=== PATIENT | female | born 1970 | race African-American/Black ===

== ENCOUNTER 2019-02-27 08:49 | Emergency (ER) | payer BC ==
[2019-02-27] MEDS ORDERED: NA CHLORIDE 0.9% 1,000 ML ONE (09:55)
[2019-02-27] MEDS ORDERED: KETOROLAC 30 MG/ML INJ ONE (09:55)
[2019-02-27] MEDS ORDERED: DIPHENHYDRAMINE 50 MG/ML VIAL ONE (09:55)
[2019-02-27] MEDS ORDERED: METOCLOPRAMIDE 10 MG/2mL INJ ONE (09:55)
--- NOTE | 2019-02-27 10:02 | RAD REPORT ---
EXAM DESCRIPTION: CT - Head Brain Wo Cont - 02/27/2019 9:48 am CLINICAL HISTORY: Persistent headache COMPARISON: None. TECHNIQUE: Axial 5 mm thick images of the head were obtained without IV contrast. All CT scans are performed using dose optimization technique as appropriate and may include automated exposure control or mA/KV adjustment according to patient size. FINDINGS: No intracranial hemorrhage, mass, edema or shift of mid-line structures. No acute infarcti on changes seen. No abnormal extra-axial fluid collections. Ventricles are normal. Mastoid air cells and visualized portions of the paranasal sinuses are clear. No acute bony findings. IMPRESSION: Negative non-contrast CT head examination.
[2019-02-27 10:39] LABS: Basophils % 0.6 % (0-1.3); Hematocrit 38.6 % (36.0-45.0); Lymphocytes % 17.6 % (15.3-44.8); MPV 10.5 fL (7.6-11.3); RBC Red Blood Cell Count 4.79 M/uL (3.86-4.86)
[2019-02-27 10:45] LABS: Albumin 3.3 g/dL (3.4-5.0); Bilirubin Total 0.4 mg/dL (0.2-1.0); Potassium 3.2 mmol/L (3.5-5.1); Protein, Total 8.6 g/dL (6.4-8.2)
--- NOTE | 2019-02-27 11:40 | ER ---
Nurse's Notes [facility] Name: Manish Tena Age: 48 yrs Sex: Female : 1970 Arrival Date: 02/27/2019 Time: 08:51 Bed 5 Private MD: Diagnosis: Headache;Essential (primary) hypertension;Hypokalemia Presentation: 02/27 08:51 Presenting complaint: EMS states: called out for frontal headache that started em yesterday, reports nausea, denies vomiting, feels similar to migraines. Transition of care: patient was not received from another setting of care. Onset of symptoms was February 26, 2018. Risk Assessment: Do you want to hurt yourself or someone else? Patient reports no desire to harm self or others. Initial Sepsis Screen: Does the patient meet any 2 criteria? No. Patient's initial sepsis screen is negative. Does the patient have a suspected source of infection? No. Patient's initial sepsis screen is negative. Care prior to arrival: None. 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 - Social history:: Smoking status: Patient/guardian denies using tobacco. - Ebola Screening: : Patient negative for fever greater than or equal to 101.5 degrees Fahrenheit, and additional compatible Ebola Virus Disease symptoms Patient denies exposure to infectious person Patient denies travel to an Ebola-affected area in the 21 days before illness onset No symptoms or risks identified at this time. - Family history:: not pertinent. Screenin:55 Abuse screen: Denies threats or abuse. Nutritional screening: No deficits noted. em Tuberculosis screening: No symptoms or risk factors identified. Fall Risk None identified. Assessment: 08:55 General: Appears in no apparent distress. uncomfortable, well groomed, well developed, em well nourished, Behavior is calm, cooperative, appropriate for age, Denies fever. Pain: Complains of pain in right frontal area and left frontal area and forehead Pain currently is 9 out of 10 on a pain scale. Pain began 1 day ago. Neuro: Level of Consciousness is awake, alert, obeys commands, Oriented to person, place, time, situation, Appropriate for age Moves all extremities. Gait is steady, Speech is normal, Reports dizziness, headache photophobia. Cardiovascular: Capillary refill < 3 seconds Patient's skin is warm and dry. Respiratory: Airway is patent Respiratory effort is even, unlabored, Respiratory pattern is regular, symmetrical. GI: Abd is soft and non tender X 4 quads. Reports nausea, Patient currently denies vomiting. Derm: Skin is intact, is healthy with good turgor, Skin is pink, warm \T\ dry. Musculoskeletal: Capillary refill < 3 seconds, Range of motion: intact in all extremities. 10:24 Reassessment: Patient appears in no apparent distress at this time. Patient and/or em family updated on plan of care and expected duration. Pain level reassessed. Patient is alert, oriented x 3, equal unlabored respirations, skin warm/dry/pink. 11:00 Reassessment: Patient appears in no apparent distress at this time. Patient and/or em family updated on plan of care and expected duration. Pain level reassessed. Patient is alert, oriented x 3, equal unlabored respirations, skin warm/dry/pink. Patient states feeling better. Patient states symptoms have improved. 12:08 Reassessment: Patient appears in no apparent distress at this time. Patient and/or em family updated on plan of care and expected duration. Pain level reassessed. Patient is alert, oriented x 3, equal unlabored respirations, skin warm/dry/pink. Patient states feeling better. Patient states symptoms have improved. Vital Signs: 08:55 BP 144 / 96; Pulse 87; Resp 16 S; Temp 98.6(O); Pulse Ox 100% on R/A; Weight 79.38 kg; em Height 5 ft. 7 in. (170.18 cm); Pain 9/10; 10:05 BP 127 / 79; Pulse 89; Resp 18; Pulse Ox 100% on R/A; Pain 9/10; em 11:00 BP 141 / 88; Pulse 78; Resp 18; Pulse Ox 99% on R/A; Pain 1/10; em 08:55 Body Mass Index 27.41 (79.38 kg, 170.18 cm) em ED Course: 08:51 Patient arrived in ED. aa5 08:51 Lorenzo Swartz, RN is Primary Nurse. em 08:53 Triage completed. em 08:54 Parrish Francis MD is Attending Physician. scott 08:55 Arm band placed on. em 08:55 Patient has correct armband on for positive identification. Placed in gown. Bed in low em position. Call light in reach. Side rails up X2. Adult w/ patient. Pulse ox on. NIBP on. 09:49 CT Head Brain wo Cont In Process Unspecified. EDMS 10:10 Inserted saline lock: 22 gauge in right antecubital area, using aseptic technique. em Blood collected. 10:10 Initial lab(s) drawn, by me, sent to lab. em 10:30 EKG done, by manager technical. reviewed by Parrish Francis MD. at1 11:41 Esequiel Crowe MD is Referral Physician. scott 11:58 No provider procedures requiring assistance completed. IV discontinued, intact, em bleeding controlled, No redness/swelling at site. Pressure dressing applied. Administered Medications: 10:10 Drug: NS 0.9% 1000 ml Route: IV; Rate: 1 bolus; Site: right antecubital; em 11:47 Follow up: IV Status: Completed infusion; IV Intake: 1000ml em 10:12 Drug: TORadol 30 mg Route: IVP; Site: right antecubital; em 10:40 Follow up: Response: No adverse reaction; Marked relief of symptoms; Pain is decreased em 10:13 Drug: Benadryl 25 mg Route: IVP; Site: right antecubital; em 10:40 Follow up: Response: No adverse reaction; Marked relief of symptoms em 10:15 Drug: Reglan 10 mg Route: IVP; Site: right antecubital; em 10:40 Follow up: Response: No adverse reaction; Marked relief of symptoms em 11:57 Drug: Potassium Effervescent Tablet 25 mEq Route: PO; em 12:06 Follow up: Response: No adverse reaction em Intake: 11:47 IV: 1000ml; Total: 1000ml. em Outcome: 11:40 Discharge ordered by . scott 11:58 Discharged to home ambulatory, with family. em 11:58 Condition: good 11:58 Discharge instructions given to patient, Instructed on discharge instructions, follow up and referral plans. medication usage, Demonstrated understanding of instructions, follow-up care, medications, Prescriptions given X 2. 12:09 Patient left the ED. em Signatures: Dispatcher [employer] Parrish Dillard MD MD cha Munoz, Edgar, RN RN Kristel Virk RN RN aa5 Lyssa Trevino, doll wig hackler EKG Tat1
--- NOTE | 2019-02-27 11:40 | EDPHYS ---
Physician Documentation [facility] Name: Manish Tena Age: 48 yrs Sex: Female : 1970 Arrival Date: 02/27/2019 Time: 08:51 Bed 5 Private MD: ED Physician Parrish Francis HPI: 02/27 09:34 This 48 yrs old Black Female presents to ER via EMS with complaints of Headache. scott 09:34 The patient complains of pain to the forehead, left frontal area and right frontal scott area. The patient describes the headache as constant. Onset: The symptoms/episode began/occurred 5 day(s) ago. Associated signs and symptoms: The patient has no apparent associated signs or symptoms. Severity of symptoms: At its worst the pain was moderate, in the emergency department the pain is unchanged. Headache History: The patient has had previous headaches and this one is similar to previous episodes. The symptoms are alleviated by Darkened room, quiet, remaining still, sleep, the symptoms are aggravated by lights, movement, noise, stress. The patient has experienced similar episodes in the past, multiple times. 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 - Social history:: Smoking status: Patient/guardian denies using tobacco. - Ebola Screening: : Patient negative for fever greater than or equal to 101.5 degrees Fahrenheit, and additional compatible Ebola Virus Disease symptoms Patient denies exposure to infectious person Patient denies travel to an Ebola-affected area in the 21 days before illness onset No symptoms or risks identified at this time. - Family history:: not pertinent. ROS: 09:34 Constitutional: Negative for fever, chills, and weight loss, Eyes: Negative for injury, scott pain, redness, and discharge, ENT: Negative for injury, pain, and discharge, Neck: Negative for injury, pain, and swelling, Cardiovascular: Negative for chest pain, palpitations, and edema, Respiratory: Negative for shortness of breath, cough, wheezing, and pleuritic chest pain, Abdomen/GI: Negative for abdominal pain, nausea, vomiting, diarrhea, and constipation, Back: Negative for injury and pain, : Negative for injury, bleeding, discharge, and swelling, MS/Extremity: Negative for injury and deformity, Skin: Negative for injury, rash, and discoloration, Psych: Negative for depression, anxiety, suicide ideation, homicidal ideation, and hallucinations, Allergy/Immunology: Negative for hives, rash, and allergies, Endocrine: Negative for neck swelling, polydipsia, polyuria, polyphagia, and marked weight changes, Hematologic/Lymphatic: Negative for swollen nodes, abnormal bleeding, and unusual bruising. 09:34 Neuro: Positive for headache. Exam: 09:34 Constitutional: This is a well developed, well nourished patient who is awake, alert, scott and in no acute distress. Head/Face: Normocephalic, atraumatic. Eyes: Pupils equal round and reactive to light, extra-ocular motions intact. Lids and lashes normal. Conjunctiva and sclera are non-icteric and not injected. Cornea within normal limits. Periorbital areas with no swelling, redness, or edema. ENT: Nares patent. No nasal discharge, no septal abnormalities noted. Tympanic membranes are normal and external auditory canals are clear. Oropharynx with no redness, swelling, or masses, exudates, or evidence of obstruction, uvula midline. Mucous membranes moist. Neck: Trachea midline, no thyromegaly or masses palpated, and no cervical lymphadenopathy. Supple, full range of motion without nuchal rigidity, or vertebral point tenderness. No Meningismus. Chest/axilla: Normal chest wall appearance and motion. Nontender with no deformity. No lesions are appreciated. Cardiovascular: Regular rate and rhythm with a normal S1 and S2. No gallops, murmurs, or rubs. Normal PMI, no JVD. No pulse deficits. Respiratory: Lungs have equal breath sounds bilaterally, clear to auscultation and percussion. No rales, rhonchi or wheezes noted. No increased work of breathing, no retractions or nasal flaring. Abdomen/GI: Soft, non-tender, with normal bowel sounds. No distension or tympany. No guarding or rebound. No evidence of tenderness throughout. Back: No spinal tenderness. No costovertebral tenderness. Full range of motion. Female : Normal external genitalia. Skin: Warm, dry with normal turgor. Normal color with no rashes, no lesions, and no evidence of cellulitis. MS/ Extremity: Pulses equal, no cyanosis. Neurovascular intact. Full, normal range of motion. Psych: Awake, alert, with orientation to person, place and time. Behavior, mood, and affect are within normal limits. 09:34 Neuro: Orientation: is normal, appropriate for stated age, no acute changes, Mentation: is normal, appropriate for stated age, no acute changes, Memory: is normal, appropriate for stated age, no acute changes, Cranial nerves: grossly normal, is grossly normal based on the patient's age, Cerebellar function: is grossly normal, is grossly normal based on the patient's age, no acute changes, Motor: is normal, Sensation: is normal, Gait: not applicable Babinski testing is normal, seizure activity, is not displayed by the patient. Vital Signs: 08:55 BP 144 / 96; Pulse 87; Resp 16 S; Temp 98.6(O); Pulse Ox 100% on R/A; Weight 79.38 kg; em Height 5 ft. 7 in. (170.18 cm); Pain 9/10; 10:05 BP 127 / 79; Pulse 89; Resp 18; Pulse Ox 100% on R/A; Pain 9/10; em 11:00 BP 141 / 88; Pulse 78; Resp 18; Pulse Ox 99% on R/A; Pain 1/10; em 08:55 Body Mass Index 27.41 (79.38 kg, 170.18 cm) em MDM: 08:55 Patient medically screened. [facility] 09:36 Data reviewed: vital signs, nurses notes, lab test result(s), EKG, radiologic studies, [facility] CT scan. 02/27 09:33 Order name: CBC with Diff; Complete Time: 11:21 [facility] 02/27 09:33 Order name: Comprehensive Metabolic Panel; Complete Time: 11:21 [facility] 02/27 09:37 Order name: CT Head Brain wo Cont; Complete Time: 11: [facility] 02/27 12:01 Order name: Urine Dipstick--Ancillary (enter results) bd 02/27 09:33 Order name: Urine Dipstick-Ancillary (obtain specimen); Complete Time: 11:47 [facility] 01/14 09:37 Order name: EKG; Complete Time: 09:37 [facility] 02/27 09:37 Order name: EKG - Nurse/Tech; Complete Time: 10:17 scott Administered Medications: 10:10 Drug: NS 0.9% 1000 ml Route: IV; Rate: 1 bolus; Site: right antecubital; em 11:47 Follow up: IV Status: Completed infusion; IV Intake: 1000ml em 10:12 Drug: TORadol 30 mg Route: IVP; Site: right antecubital; em 10:40 Follow up: Response: No adverse reaction; Marked relief of symptoms; Pain is decreased em 10:13 Drug: Benadryl 25 mg Route: IVP; Site: right antecubital; em 10:40 Follow up: Response: No adverse reaction; Marked relief of symptoms em 10:15 Drug: Reglan 10 mg Route: IVP; Site: right antecubital; em 10:40 Follow up: Response: No adverse reaction; Marked relief of symptoms em 11:57 Drug: Potassium Effervescent Tablet 25 mEq Route: PO; em 12:06 Follow up: Response: No adverse reaction em Disposition: 02/27/19 11:40 Discharged to Home. Impression: Headache, Essential (primary) hypertension, Hypokalemia. - Condition is Stable. - Discharge Instructions: Potassium Content of Foods, General Headache Without Cause, Migraine Headache, Hypertension, Hypertension, Ldwu-lm-Kjww, Migraine Headache, Ynip-qu-Tknx, How to Take Your Blood Pressure, Vgdg-pj-Nxuu, General Headache Without Cause, Ofws-hu-Qepo, Managing Your Hypertension. - Prescriptions for Fioricet with Codeine 50- 325-40-30 mg Oral capsule - take 1 capsule by ORAL route every 4 hours as needed not to exceed 6 capsules per 24hrs; 20 capsule. Zofran 4 mg Oral Tablet - take 1 tablet by ORAL route every 12 hours As needed; 20 tablet. - Medication Reconciliation Form, Thank You Letter, Antibiotic Education, Prescription Opioid Use, Work release form form. - Follow up: Private Physician; When: 2 - 3 days; Reason: Recheck today's complaints, Continuance of care, Re-evaluation by your physician. Follow up: Esequiel Crowe MD; When: 2 - 3 days; Reason: Recheck today's complaints, Re-evaluation by your physician. - Problem is new. - Symptoms have improved. Signatures: Dispatcher [employer] Parrish Dillard MD MD cha Therrien, Shelly, COLLAR STITCHER-C COLLAR STITCHER-Csnw Lorenzo Swartz, RN RN em Corrections: (The following items were deleted from the chart) 11:41 11:40 02/27/2019 11:40 Discharged to Home. Impression: Headache; Essential (primary) scott hypertension. Condition is Stable. Forms are Medication Reconciliation Form, Thank You Letter, Antibiotic Education, Prescription Opioid Use. Follow up: Private Physician; When: 2 - 3 days; Reason: Recheck today's complaints, Continuance of care, Re-evaluation by your physician. Problem is new. Symptoms have improved. scott 11:43 11:41 02/27/2019 11:40 Discharged to Home. Impression: Headache; Essential (primary) scott hypertension. Condition is Stable. Discharge Instructions: General Headache Without Cause, Migraine Headache, Hypertension, Hypertension, Nwuc-wf-Bzwc, Migraine Headache, Rlmj-uq-Fuqk, How to Take Your Blood Pressure, Crxx-qd-Dsee, General Headache Without Cause, Iixw-df-Lcma, Managing Your Hypertension. Prescriptions for Fioricet with Codeine 74-289-53-30 mg Oral capsule - take 1 capsule by ORAL route every 4 hours as needed not to exceed 6 capsules per 24hrs; 20 capsule, Zofran 4 mg Oral Tablet - take 1 tablet by ORAL route every 12 hours As needed; 20 tablet. and Forms are Medication Reconciliation Form, Thank You Letter, Antibiotic Education, Prescription Opioid Use. Follow up: Private Physician; When: 2 - 3 days; Reason: Recheck today's complaints, Continuance of care, Re-evaluation by your physician. Follow up: Esequiel Crowe; When: 2 - 3 days; Reason: Recheck today's complaints, Re-evaluation by your physician. Problem is new. Symptoms have improved. scott 12:09 11:43 02/27/2019 11:40 Discharged to Home. Impression: Headache; Essential (primary) em hypertension; Hypokalemia. Condition is Stable. Discharge Instructions: General Headache Without Cause, Migraine Headache, Hypertension, Hypertension, Grfj-kv-Nxes, Migraine Headache, Twht-xl-Luot, How to Take Your Blood Pressure, Ocfa-bv-Ifpj, General Headache Without Cause, Piwy-il-Xzyf, Managing Your Hypertension. Prescriptions for Fioricet with Codeine 05-588-80-30 mg Oral capsule - take 1 capsule by ORAL route every 4 hours as needed not to exceed 6 capsules per 24hrs; 20 capsule, Zofran 4 mg Oral Tablet - take 1 tablet by ORAL route every 12 hours As needed; 20 tablet. and Forms are Medication Reconciliation Form, Thank You Letter, Antibiotic Education, Prescription Opioid Use. Follow up: Private Physician; When: 2 - 3 days; Reason: Recheck today's complaints, Continuance of care, Re-evaluation by your physician. Follow up: Esequiel Crowe; When: 2 - 3 days; Reason: Recheck today's complaints, Re-evaluation by your physician. Problem is new. Symptoms have improved. scott
[2019-02-27] MEDS ORDERED: POTASSIUM 25 MEQ EFFERV TAB ONE (11:54)
[2019-02-27 12:11] LABS: Urine Blood NEGATIVE (NEG); Urine Glucose NEGATIVE (NEG); Urine Protein TRACE (NEG); Urine pH 5.5 (5.0-7.0)
[2019-02-27 12:20] VITALS: TEMP 98.6
[2019-02-27 12:32] VITALS: BP 141/88; O2SAT 99
--- NOTE | 2019-02-27 20:55 | EKG ---
Test Date: 2019-02-27 Test Time: 10:18:50 Camera Prototyping Engineer: MELISSA MEASUREMENT RESULTS: Intervals: Rate: 77 NE: 192 QRSD: 82 QT: 412 QTc: 466 [place]: P: 61 NE: 192 QRS: 74 T: 54 INTERPRETIVE STATEMENTS: Normal sinus rhythm Nonspecific T wave abnormality Prolonged QT Abnormal ECG No previous ECG available for comparison Electronically Signed On 02-27-19 20:54:50 CHAIN PERSON by Torsten Benavidez
== END 2019-02-27 12:09 | disposition home or self-care (01) ==
LOC: ER 08:49
DX: E87.6 Hypokalemia (principal); I10 Essential (primary) hypertension
CPT/HCPCS: 96361; 93005; 85025; 36415; 81003; 80053; 70450; 96375; 96374; 99284; J2765; J1200; J7030

== ENCOUNTER 2023-07-15 09:41 | Observation (INO) | payer BC ==
--- OUTSIDE RECORDS SUMMARY | 2023-07-15 09:44 | XMS REPORT | Clinical Summary ---
Author Name Unknown Organization [facility] Address [address] [place] [address] Care Team Providers Care Timber Grader Name Role Phone Ck Tapia MD Unavailable [phone] Glory Whaley APRN Primary Care Provider [phone] Encounters Date Type Department Care Team Description 05/24/2023 Orders Only Undiagnosed Breast Clinic in [facility] [id number] [place] [address], [address] [place] [address] Glory Whaley APRN Other abnormal and inconclusive findings on diagnostic imaging of breast (Primary Dx) 04/04/2023 8:20 PM BUSINESS TEAM LEADER Ancillary Procedure Image Library [address] [place] [address] Cancer 04/04/2023 8:15 PM BUSINESS TEAM LEADER Ancillary Procedure Image Library [address] [place] [address]351 Cancer 04/04/2023 8:10 PM BUSINESS TEAM LEADER Ancillary Procedure Image Library [address] [place] [address] 45990 Cancer 04/04/2023 8:05 PM BUSINESS TEAM LEADER Ancillary Procedure Image Library [address] [place] [address] 43884 Cancer 04/04/2023 8:00 PM BUSINESS TEAM LEADER Ancillary Procedure Image Library [address] [place] [address] 16296 Cancer after 07/15/2022 Social History Tobacco Use Types Packs/Day Years Used Date Smoking Tobacco: Never Assessed Sex and Gender Information Value Date Recorded Sex Assigned at Female 04/04/2023 12:20 PM BUSINESS TEAM LEADER Gender Identity Female 04/04/2023 12:20 PM BUSINESS TEAM LEADER Sexual Orientation Not on file Job Start Date Occupation Industry Not on file Not on file Not on file Plan of Treatment Upcoming Encounters Date Type Department Care Team ([facility] Contact Info) Description 08/01/2023 10:00 AM CDT NPR MDA PATIENT ACCESS 08/03/2023 10:00 AM CDT Office Visit Undiagnosed Breast Clinic [address] [place] [address], [address] [place] [id number] Glory Whaley, SPINDRAW OPERATOR [address] [place] [address] 08/03/2023 12:15 PM CDT Appointment Breast Imaging [address] [place] [id number] Glory Whaley, SPINDRAW OPERATOR [address] [place] [address] 08/03/2023 1:15 PM CDT Appointment Breast Imaging [address] [place] [address], [address] [place] [phone] Glory Whaley, SPINDRAW OPERATOR [address] [place] [address] 08/03/2023 3:20 PM CDT Clinical Support Undiagnosed Breast Clinic [address] [place] [address], [address] [place] [id number] Glory Whaley, SPINDRAW OPERATOR [address] [place] [address] Health Maintenance Due Date Last Done Comments COVID-19 Vaccine ( season) 2022 Influenza Vaccine 10/16/2023 Procedures Procedure Name Priority Date/Time Associated Diagnosis Comments OSI US BREAST BIOPSY Routine 02/02/2023 8:54 PM BUSINESS TEAM LEADER Cancer OSI MAMMOGRAPHY UNILATERAL LEFT Routine 02/02/2023 8:54 PM BUSINESS TEAM LEADER Cancer OSI MAMMO BILATERAL Routine 01/21/2023 8 :55 PM BUSINESS TEAM LEADER Cancer after 07/15/2022 Results * OSI MAMMOGRAPHY UNILATERAL LEFT (02/02/2023 8:54 PM BUSINESS TEAM LEADER) Narrative [facility] - 04/04/2023 8:54 PM BUSINESS TEAM LEADER Study acquired at another institution. For comparison only. No MD Francis originated interpretation requested or available. Ck MANNING OUTSIDE IMAGE ORDERABLES Performing Organization Address [facility] Co de Phone Number [facility] * OSI US Breast Biopsy (02/02/2023 8:54 PM BUSINESS TEAM LEADER) Narrative [facility] - 04/04/2023 8:54 PM BUSINESS TEAM LEADER Study acquired at another institution. For comparison only. No MD Francis originated interpretation requested or available. Ck MANNING OUTSIDE IMAGE ORDERABLES Performing Organization Address [facility] Co de Phone Number [facility] * OSI Mammo (01/21/2023 8:55 PM BUSINESS TEAM LEADER) Narrative [facility] - 04/04/2023 8:55 PM BUSINESS TEAM LEADER Study acquired at another institution. For comparison only. No MD Francis originated interpretation requested or available. Ck MANNING OUTSIDE IMAGE ORDERABLES [facility] after 07/15/2022 Care Teams Timber Grader Relationship Specialty Start Date End Date Ck Tapia MD [address] [place] [id number] PCP - External Primary Care Provider Internal Medicine 04/01/23 Glory Whaley APRN [address] [place] [id number] PCP - General Cancer Prevention 05/23/23
[2023-07-15 11:06] LABS: Specific Gravity 1.028 (1.005-1.030); Sqamous Epithelial <5 /HPF (None Seen); Urine Bacteria None Seen /HPF (<20); Urine Bilirubin NEGATIVE (Negative); Urine Blood Negative (Negative); Urine Clarity Turbid (Clear); Urine Color Yellow (Yellow); Urine Culture Reflex Order NOT NEEDED; Urine Glucose NEGATIVE (Negative); Urine Ketones NEGATIVE (Negative); Urine Microscopic Reflex YN ORDER UMIC; Urine Mucus Slight /HPF (None Seen); Urine Nitrite NEGATIVE (Negative); Urine Protein TRACE (Negative); Urine RBC <5 /HPF (None Seen); Urine Urobilinogen Normal (Normal); Urine WBC <5 /HPF (<5)
[2023-07-15 11:09] LABS: PT Prothrombin Time 13.1 SECONDS (9.5-12.5); PTT, Activated Partial Thromb 37.3 SECONDS (24.3-36.9); Protime INR 1.2
[2023-07-15 11:11] LABS: Absolute Eosinophils 0.1 K/uL (0-0.5); Absolute Lymphocytes (CBC) 1.7 K/uL (0.7-4.9); Absolute Monocytes 0.5 K/uL (0.1-1.3); Absolute Neutrophil 2.6 K/uL (1.8-8.0); Basophils % 0.6 % (0-1.3); Hematocrit 35.9 % (36.0-45.0); Hemoglobin 11.6 g/dL (12.0-15.0); MCH 25.9 pg (27.0-35.0); MCHC 32.3 g/dL (32.0-36.0); MCV 80.2 fL (80-100); MPV 9.5 fL (7.6-11.3); Monocytes % 9.5 % (3.3-12.3); Neutrophils % 52.9 % (41.7-73.7); Nucleated Red Blood Cells % 0.1 % (0-0); Platelets 171 thou/uL (152-406); RBC Red Blood Cell Count 4.48 M/uL (3.86-4.86)
[2023-07-15 11:21] LABS: Anion Gap 4.3 mEq/L (5.0-15.0); Potassium 3.3 mEq/L (3.5-5.1); Troponin High Sensitivity 4.3 pg/mL (<58.9)
--- NOTE | 2023-07-15 11:21 | RAD REPORT ---
EXAM DESCRIPTION: CT - Head Brain Wo Cont - 07/15/2023 10:53 am CLINICAL HISTORY: Left-sided weakness COMPARISON: 2019 TECHNIQUE: Computed axial tomography of the head was obtained. IV contrast was not requested. All CT scans are performed using dose optimization technique as appropriate and may include automated exposure control or mA/KV adjustment according to patient size. FINDINGS: An intracranial bleed is not seen The ventricles are normal in caliber No significant hypodense areas within the brain visualized No extra-axial fluid collection is noted. Fluid within the sinuses/ mastoids is not seen IMPRESSION: No acute intracranial abnormality is seen If patient's symptoms persist MRI of the brain would be recommended
--- NOTE | 2023-07-15 11:21 | RAD REPORT ---
EXAM DESCRIPTION: Millie Single View07/15/2023 10:59 am CLINICAL HISTORY: Chest pain COMPARISON: none FINDINGS: The lungs appear clear of acute infiltrate. The heart is normal size IMPRESSION: No acute abnormalities displayed
--- NOTE | 2023-07-15 13:05 | ER ---
Nurse's Notes [facility] Name: Manish Tena Age: 52 yrs Sex: Female : 1970 Arrival Date: 07/15/2023 Time: 09:41 Bed 14 Private MD: Diagnosis: Left sided numbness;Hypetension;Anemia;Hypokalemia Presentation: 07/14 09:55 Chief complaint: Chief complaint: Patient states: LEFT FACE WEAKNESS, HEADACHE, AND db BODY WEAKNESS X 3 DAYS. NO FACIAL ASYMMETRY. 10:07 Coronavirus screen: Client denies travel out of the [place] in the last 14 days. At this db time, the client does not indicate any symptoms associated with coronavirus-19. Ebola Screen: Patient negative for fever greater than or equal to 101.5 degrees Fahrenheit, and additional compatible Ebola Virus Disease symptoms Patient denies exposure to infectious person. Patient denies travel to an Ebola-affected area in the 21 days before illness onset. No symptoms or risks identified at this time. No acute neurological deficit is noted. Initial Sepsis Screen: Does the patient meet any 2 criteria? No. Patient's initial sepsis screen is negative. Does the patient have a suspected source of infection? No. Patient's initial sepsis screen is negative. Risk Assessment: Do you want to hurt yourself or someone else? Patient reports no desire to harm self or others. Onset of symptoms was July 12, 2023. 10:07 Method Of Arrival: Ambulatory db 10:07 Acuity: ANAHY 2 db Triage Assessment: 10:10 General: Appears in no apparent distress. comfortable, Behavior is calm, cooperative. db Pain: Complains of pain in head and abdomen. Neuro: Level of Consciousness is awake, alert, obeys commands, Oriented to person, place, time, situation. Respiratory: Airway is patent Respiratory effort is even, unlabored, Respiratory pattern is regular, symmetrical. GI: Abdomen is flat, non-distended, Reports lower abdominal pain, upper abdominal pain. DOCUMENT CONTROL COORDINATOR: 10:10 LMP N/A - Post-menopause, Not db Historical: - Allergies: 10:10 Latex, Natural Rubber; db - PMHx: 10:10 Hypertension; Migraines; PRE DIABETIC (Migraines); Osteoarthritis; db - Immunization history:: Adult Immunizations unknown. - Infectious Disease History:: Denies. - Social history:: Smoking status: Patient denies any tobacco usage or history of. Screenin:43 [facility] ED Fall Risk Assessment (Adult) History of falling in the last 3 months, db including since admission No falls in past 3 months (0 pts) Confusion or Disorientation No (0 pts) Intoxicated or Sedated No (0 pts) Impaired Gait No (0 pts) Mobility Assist Device Used No (0 pt) Altered Elimination No (0 pt) Score/Fall Risk Level 0 - 2 = Low Risk Oriented to surroundings, Maintained a safe environment. Abuse screen: Denies threats or abuse. Denies injuries from another. Nutritional screening: No deficits noted. Tuberculosis screening: No symptoms or risk factors identified. Assessment: 10:45 Reassessment: Patient appears in no apparent distress at this time. Patient and/or db family updated on plan of care and expected duration. Pain level reassessed. Patient is alert, oriented x 3, equal unlabored respirations, skin warm/dry/pink. General: Appears in no apparent distress. comfortable, Behavior is calm, cooperative, appropriate for age. Neuro: Level of Consciousness is awake, alert, obeys commands, Oriented to person, place, time, situation, Moves all extremities. Speech is normal, Facial symmetry appears normal, Pupils are PERRLA. 11:30 Reassessment: Patient appears in no apparent distress at this time. Patient and/or db family updated on plan of care and expected duration. Pain level reassessed. Patient is alert, oriented x 3, equal unlabored respirations, skin warm/dry/pink. 12:30 Reassessment: Patient appears in no apparent distress at this time. Patient and/or db family updated on plan of care and expected duration. Pain level reassessed. Patient is alert, oriented x 3, equal unlabored respirations, skin warm/dry/pink. 14:28 Reassessment: Patient appears in no apparent distress at this time. Patient and/or db family updated on plan of care and expected duration. Pain level reassessed. Patient is alert, oriented x 3, equal unlabored respirations, skin warm/dry/pink. Patient states symptoms have improved. 15:02 Reassessment: PT TO MRI THEN TO UNIT. ESCORTED PT FAMILY TO UNIT. db Vital Signs: 10:07 BP 160 / 85; Pulse 85; Resp 16; Temp 98.5; Pulse Ox 100% on R/A; Weight 77.11 kg; db Height 5 ft. 7 in. ; 10:30 BP 158 / 88; Pulse 73; Resp 16; Pulse Ox 100% on R/A; db 11:50 BP 138 / 77; Pulse 72; Resp 16; Pulse Ox 100% ; db 12:42 BP 160 / 91; Pulse 70; Resp 18; Pulse Ox 98% on R/A; db 13:00 BP 162 / 85; Pulse 69; Resp 14; Pulse Ox 100% on R/A; db 14:00 BP 164 / 94; Pulse 73; Resp 16; Temp 98.2; Pulse Ox 100% ; db 14:30 BP 162 / 87; Pulse 73; Resp 18; Pulse Ox 99% on R/A; db 10:07 Body Mass Index 26.63 (77.11 kg, 170.18 cm) db NIH Stroke Scale Scores: 10:49 NIHSS Score: 0 ms3 ED Course: 09:44 Patient arrived in ED. mg5 09:50 Omid Patel DO is Attending Physician. ms3 10:06 Denise Campbell, EDA is Primary Nurse. db 10:10 Triage completed. db 10:10 Arm band placed on Patient placed in an exam room. EKG completed in triage. Results db shown to MD. 10:45 Inserted saline lock: 22 gauge in left antecubital area, using aseptic technique. Blood db collected. 10:48 Initial lab(s) drawn, by me, sent to lab. EKG done, by ED staff, reviewed by Omid Patel DO. 10:[address] via stretcher. db 10:55 Head Brain Wo Cont In Process Unspecified. EDMS 11:00 Stroke CXR 1 View In Process Unspecified. EDMS 12:43 Patient has correct armband on for positive identification. Bed in low position. Call db light in reach. Side rails up X2. Client placed on continuous cardiac and pulse oximetry monitoring. NIBP monitoring applied. ekg monitor tech on. Pulse ox on. NIBP on. Warm blanket given. Pillow given. 12:43 No provider procedures requiring assistance completed. db 13:05 Alex Kelley MD is Hospitalizing Provider. ms3 14:28 Provided Education on: ADMISSION. db 14:28 Patient admitted, IV remains in place. db 14:42 by me, sent to lab. db Administered Medications: No medications were administered Medication: 12:44 VIS not applicable for this client. db Outcome: 13:05 Decision to Hospitalize by Provider. ms3 14:28 Admitted to ER Hold. [facility] for further documentation. db 14:28 Condition: stable 14:28 Instructed on the need for admit, 15:11 Patient left the ED. db NIH Stroke Scale - NIH Stroke Score Date: 07/15/2023 Time: 10:49 Total Score = 0 10. Dysarthria (speech clarity - read or repeat words) - 0(Normal) 11. Extinction and Inattention (visual/tactile/auditory/spatial/personal) - 0(No abnormality) 1a. Level of Consciousness (LOC) - 0(Alert) 1b. Level of Consciousness (LOC) (Month \T\ Age) - 0(Both) 1c. LOC Commands (Open \T\ Closes Eyes/Planer Offbearer) - 0(Both) 2. Best Gaze (Lateral Gaze Paresis) - 0(Normal) 3. Visual Field Loss - 0(No visual loss) 4. Facial Palsy - 0(Normal) 5a. Left Arm: Motor (10-second hold) - 0(No drift) 5b. Right Arm: Motor (10-second hold) - 0(No drift) 6a. Left Leg: Motor (5-second hold - always test supine) - 0(No drift) 6b. Right Leg: Motor (5-second hold - always test supine) - 0(No drift) 7. Limb Ataxia (finger/nose \T\ heel/dawson - test with eyes open) - 0(Absent) 8. Sensory Loss (pinprick arms/legs/face) - 0(Normal) 9. Best Language: Aphasia (description/naming/reading) - 0(No aphasia) Initials: ms3 Signatures: Dispatcher [employer] EDMS Omid Patel DO DO ms3 Denise Campbell RN RN db Cara Kapoor mg5 Corrections: (The following items were deleted from the chart) 10:10 09:55 Chief complaint: db db
--- NOTE | 2023-07-15 13:05 | EDPHYS ---
Physician Documentation [facility] Name: Manish Tena Age: 52 yrs Sex: Female : 1970 Arrival Date: 07/15/2023 Time: 09:41 Bed 14 Private MD: ED Physician Omid Patel HPI: 07/14 10:49 This 52 yrs old Black Female presents to ER via Ambulatory with complaints of Weakness, ms3 Headache, Abdominal Pain, Numbness Of Face. 10:49 52-year-old female with past medical history of hypertension, migraines, diabetes, ms3 osteoarthritis presents to the emergency department with her for left facial, left upper extremity, left lower extremity numbness that began 3 days prior to arrival. Patient endorses headache, soft stools, and burning abdominal pain as well. Patient states her headache is rated 9/10. Patient denies any alleviating or inciting factors. 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 - Infectious Disease History:: Denies. - Social history:: Smoking status: Patient denies any tobacco usage or history of. ROS: 10:49 Constitutional: Negative for fever, and chills. Neck: Negative for injury, pain, and ms3 swelling, Cardiovascular: Negative for chest pain, and palpitations. Respiratory: Negative for shortness of breath, cough, wheezing, and pleuritic chest pain, 10:49 MS/Extremity: Negative for injury and deformity, Skin: Negative for injury, rash, and discoloration, 10:49 Abdomen/GI: Positive for abdominal pain, Exam: 10:49 Constitutional: This is a well developed, well nourished patient who is awake, alert, ms3 and in no acute distress. Head/Face: Normocephalic, atraumatic. Neck: Trachea midline, no cervical lymphadenopathy. Supple, full range of motion without nuchal rigidity, or vertebral point tenderness. No Meningismus. Chest/axilla: Normal chest wall appearance and motion. Nontender with no deformity. Cardiovascular: Regular rate and rhythm with a normal S1 and S2. No gallops, murmurs, or rubs. Normal PMI, no JVD. No pulse deficits. Respiratory: Lungs have equal breath sounds bilaterally, clear to auscultation and percussion. No rales, rhonchi or wheezes noted. No increased work of breathing, no retractions or nasal flaring. Abdomen/GI: Soft, non-tender, with normal bowel sounds. No distension or tympany. No guarding or rebound. No evidence of tenderness throughout. MS/ Extremity: Pulses equal, no cyanosis. Neurovascular intact. Full, normal range of motion. Neuro: Awake and alert, GCS 15, oriented to person, place, time, and situation. Cranial nerves II-XII grossly intact. Motor strength 5/5 in all extremities. Sensory grossly intact. Cerebellar exam normal. Normal gait. 10:54 ECG was reviewed by the Attending Physician. ms3 Vital Signs: 10:07 BP 160 / 85; Pulse 85; Resp 16; Temp 98.5; Pulse Ox 100% on R/A; Weight 77.11 kg; db Height 5 ft. 7 in. ; 10:30 BP 158 / 88; Pulse 73; Resp 16; Pulse Ox 100% on R/A; db 11:50 BP 138 / 77; Pulse 72; Resp 16; Pulse Ox 100% ; db 12:42 BP 160 / 91; Pulse 70; Resp 18; Pulse Ox 98% on R/A; db 13:00 BP 162 / 85; Pulse 69; Resp 14; Pulse Ox 100% on R/A; db 14:00 BP 164 / 94; Pulse 73; Resp 16; Temp 98.2; Pulse Ox 100% ; db 14:30 BP 162 / 87; Pulse 73; Resp 18; Pulse Ox 99% on R/A; db 10:07 Body Mass Index 26.63 (77.11 kg, 170.18 cm) db NIH Stroke Scale Scores: 10:49 NIHSS Score: 0 ms3 MDM: 10:01 Patient medically screened. ms3 12:59 Data reviewed: vital signs, nurses notes, lab test result(s), EKG, radiologic studies. ms3 Consideration of Admission/Observation Patient was admitted/placed on observation. Management of patient was discussed with the following: Hospitalist: Tiffanie Miramontes NP with Dr Kelley. Independent interpretation of the following test(s) in the Emergency Department CT Scan: My interpretation is CT scan head without contrast reviewed does not reveal ICH. Counseling: I had a detailed discussion with the patient and/or guardian regarding the historical points, exam findings, and any diagnostic results supporting the discharge/admit diagnosis, lab results, radiology results, the need for further work-up and treatment in the hospital. Special discussion:. ED course: Discussed labs and radiology reports with patient and her . Patient kei in stable condition at this time. Discussed observation with them and they understand and agree with plan. 07/14 10:24 Order name: Basic Metabolic Panel; Complete Time: 11:21 db 07/14 10:24 Order name: CBC with Diff; Complete Time: 11: db 07/14 10:24 Order name: High Sensitivity Troponin; Complete Time: 11: db 07/14 10:24 Order name: Protime (+inr); Complete Time: 11: db 07/14 10:24 Order name: Ptt, Activated; Complete Time: 11: db 07/14 10:33 Order name: Urinalysis w/ reflexes; Complete Time: 11:21 db 07/14 13:55 Order name: C-ANCA Anti-Proteinase 3 [facility] 07/14 13:55 Order name: Cardiolipin Antibodies G,M [facility] 07/14 13:55 Order name: Factor V Leiden Mutation [facility] 07/14 13:55 Order name: Miscellaneous Test Lab [facility] 07/14 13:55 Order name: Protein C Antigen [facility] 07/14 13:55 Order name: Protein Electo w/M Valerio Serum [facility] 07/14 13:55 Order name: Protein S (Total [facility] 07/14 13:55 Order name: PROTHROMBIN GENE ANALYSIS (F2) [facility] 07/14 13:55 Order name: RPR [facility] 07/14 13:55 Order name: Vitamin B12 Level [facility] 07/14 13:55 Order name: Vitamin D, 25 ([place]), TOTAL [facility] 07/14 13:55 Order name: Basic Metabolic Panel [facility] 07/14 13:55 Order name: Basic Metabolic Panel [facility] 07/14 13:55 Order name: Basic Metabolic Panel [facility] 07/14 13:55 Order name: Basic Metabolic Panel [facility] 07/14 13:55 Order name: Basic Metabolic Panel [facility] 07/14 13:55 Order name: Basic Metabolic Panel [facility] 07/14 13:55 Order name: CBC with Automated Diff EDMS 07/14 13:55 Order name: CBC with Automated Diff EDMS 07/14 13:55 Order name: CBC with Automated Diff EDMS 07/14 13:55 Order name: CBC with Automated Diff EDMS 07/14 13:55 Order name: CBC with Automated Diff EDMS 07/14 13:55 Order name: CBC with Automated Diff EDMS 07/14 13:55 Order name: Lipid Profile EDMS 07/14 13:55 Order name: Lipid Profile EDMS 07/14 13:55 Order name: Magnesium EDMS 07/14 13:55 Order name: Magnesium EDMS 07/14 13:55 Order name: Magnesium EDMS 07/14 13:55 Order name: Magnesium EDMS 07/14 13:55 Order name: Magnesium EDMS 07/14 13:55 Order name: Magnesium EDMS 07/14 13:55 Order name: Phosphorus EDMS 07/14 13:55 Order name: Phosphorus EDMS 07/14 13:55 Order name: Phosphorus EDMS 07/14 13:55 Order name: Phosphorus EDMS 07/14 13:55 Order name: Phosphorus EDMS 07/14 13:55 Order name: Phosphorus EDMS 07/14 13:55 Order name: T4,Total EDMS 07/14 13:55 Order name: T4,Total EDMS 07/14 13:55 Order name: Thyroid Stimulating Hormone EDMS 07/14 13:55 Order name: Thyroid Stimulating Hormone EDMS 07/14 13:55 Order name: Troponin High Sensitivity EDMS 07/14 13:55 Order name: Troponin High Sensitivity EDMS 07/14 13:55 Order name: Troponin High Sensitivity EDMS 07/14 10:24 Order name: Stroke CXR 1 View; Complete Time: 11:22 db 07/14 10:32 Order name: Head Brain Wo Cont; Complete Time: 11:22 EDMS 07/14 13:55 Order name: Echo with Doppler EDMS 07/14 13:55 Order name: Stroke Protocol EDMS 07/14 10:24 Order name: EKG; Complete Time: 10:24 db 07/14 13:55 Order name: Physical Therapy Consult EDMS 07/14 13:55 Order name: Speech Therapy Consult EDMS 07/14 10:24 Order name: Accucheck; Complete Time: 11:23 db 07/14 10:24 Order name: Cardiac monitoring; Complete Time: 11:23 db 07/14 10:24 Order name: EKG - Nurse/Tech; Complete Time: : db 07/14 10:24 Order name: IV Saline Lock; Complete Time: 11: db 07/14 10:24 Order name: Labs collected and sent; Complete Time: 11: db 07/14 10:24 Order name: NPO; Complete Time: 11: db 07/14 10:24 Order name: O2 Per Protocol; Complete Time: : db 07/14 10:24 Order name: O2 Sat Monitoring; Complete Time: 11: db 07/14 10:24 Order name: Stroke Swallow Screen; Complete Time: 11:23 db EC:54 Rate is 73 beats/min. Rhythm is regular. QRS [place] is Normal. RI interval is normal. QRS ms3 interval is normal. Clinical impression: NSR w/ Non-specific ST/T Changes. Interpreted by me. Reviewed by me. Administered Medications: No medications were administered Disposition Summary: 07/15/23 13:05 Hospitalization Ordered Notes: Hospitalization Status: Observation ms3 Provider: Alex Kelley ms3 Location: Telemetry/MedSurg (observation) ms3 Condition: Stable ms3 Problem: new ms3 Symptoms: are unchanged ms3 Bed/Room Type: Standard ms3 Room Assignment: 217(07/15/23 14:10) eb Diagnosis - Left sided numbness ms3 - Hypetension ms3 - Anemia ms3 - Hypokalemia ms3 Forms: - Medication Reconciliation Form ms3 - SBAR form ms3 - Leadership Thank You Letter ms3 NIH Stroke Scale - NIH Stroke Score Date: 07/15/2023 Time: 10:49 Total Score = 0 10. Dysarthria (speech clarity - read or repeat words) - 0(Normal) 11. Extinction and Inattention (visual/tactile/auditory/spatial/personal) - 0(No abnormality) 1a. Level of Consciousness (LOC) - 0(Alert) 1b. Level of Consciousness (LOC) (Month \T\ Age) - 0(Both) 1c. LOC Commands (Open \T\ Closes Eyes/Nurse Sitter) - 0(Both) 2. Best Gaze (Lateral Gaze Paresis) - 0(Normal) 3. Visual Field Loss - 0(No visual loss) 4. Facial Palsy - 0(Normal) 5a. Left Arm: Motor (10-second hold) - 0(No drift) 5b. Right Arm: Motor (10-second hold) - 0(No drift) 6a. Left Leg: Motor (5-second hold - always test supine) - 0(No drift) 6b. Right Leg: Motor (5-second hold - always test supine) - 0(No drift) 7. Limb Ataxia (finger/nose \T\ heel/dawson - test with eyes open) - 0(Absent) 8. Sensory Loss (pinprick arms/legs/face) - 0(Normal) 9. Best Language: Aphasia (description/naming/reading) - 0(No aphasia) Initials: ms3 Signatures: Dispatcher [employer] EDMS Ana Yanez Marcus, DO ms3 Denise Campbell RN RN db Corrections: (The following items were deleted from the chart) 10:25 10:24 BASIC METABOLIC PANEL+C.LAB.BRZ ordered. EDMS EDMS 10:25 10:24 CBC+H.LAB.BRZ ordered. EDMS EDMS 10:25 10:24 Troponin High Sensitivity+C.LAB.BRZ ordered. EDMS EDMS 10:25 10:24 PROTIME (+INR)+COAG.LAB.BRZ ordered. EDMS EDMS 10:25 10:24 PTT, ACTIVATED+COAG.LAB.BRZ ordered. EDMS EDMS 10:32 10:24 CT-STROKE BRAIN W/O CONTRAST+CT.RAD.BRZ ordered. EDMS EDMS 14:10 13:05 ms3 eb
--- NOTE | 2023-07-15 13:18 | P.HP ---
Certification for Inpatient Patient admitted to: Observation With expected LOS: <2 Midnights Patient will require the following post-hospital care: None Practitioner: I am a practitioner with admitting privileges, knowledge of patient current condition, hospital course, and medical plan of care. Services: Services provided to patient in accordance with Admission requirements found in Title 42 Section 412.3 of the Code of Federal Regulations Patient History Date of Service: 07/15/23 Reason for admission: left sided weakness, migraine headache History of Present Illness: Manish Tena is a 52-year-old female with past medical history of hypertension, diabetes mellitus, migraines, osteoma arthritis who presents to the ED with chief complaint headache, soft stool, burning abdominal pain for the last 3 days including left facial, left upper extremity, and left lower extremity numbness. On examination NIH scale 1 for decreased sensation, no defi cits noted, normal sinus rhythm, bilaterally clear breath sounds. She reports her last migraine was 3 days ago. The symptoms seem to correlate although she states she has never had these symptoms with a migraine in the past. Initial vitals BP 160 / 85; Pulse 85; Resp 16; Temp 98.5; Pulse Ox 100% on R/A Laboratory evaluation significant for hypokalemia with potassium 3.3, PT 13.1, PTT 37.5, otherwise unremarkable Chest x-ray report "The lungs appear clear of acute infiltrate. The heart is normal size. IMPRESSION: No acute abnormalities displayed." Head CT report "No acute intracranial abnormality is seen" Manish will be admitted to hospitalist service for further evaluation and treatment of [place] and left sided weakness. Allergies latex Allergy (Verified 07/15/23 15:32) Hives/Rash shrimp Allergy (Verified 07/15/23 15:32) Hives Home Medications: Amlodipine [Norvasc] 5 mg PO DAILY 07/15/23 Atogepant [Qulipta] 60 mg PO DAILY 07/15/23 Cetirizine HCl [Zyrtec] 10 mg PO 07/15/23 Eszopiclone 2 mg PO BEDTIME 07/15/23 Famotidine [Pepcid] 20 mg PO DAILY 07/15/23 Losartan/Hydrochlorothiazide [Losartan-Hctz 100-25 mg Tab] 1 each PO DAILY 07/15/23 Meloxicam 7.5 mg PO BID 07/15/23 Montelukast [Singulair] 10 mg PO DAILY 07/15/23 Ondansetron [Zofran] 4 mg PO Q6H PRN 07/15/23 - Past Medical/Surgical History -: Hypertension -: Migraine -: Osteoarthritis Review of Systems Gastrointestinal: Abdominal Pain (burning), Other (soft stools) Neurological: Other (numbness to left face, upper, and lower extremities) Physical Examination - Physical Exam General: Alert, In no apparent distress, Oriented x3 HEENT: Atraumatic, Normocephalic, PERRLA Neck: Supple, 2+ carotid pulse no bruit, JVD not distended Respiratory: Clear to auscultation bilaterally, Normal air movement Cardiovascular: Normal pulses, Regular rate/rhythm, Normal S1 S2 Capillary refill: <2 Seconds Gastrointestinal: Normal bowel sounds, Soft and benign, No tenderness (to palpation) Musculoskeletal: No swelling Integumentary: No rashes - Studies Laboratory Data (last 24 hrs) 07/15/23 07/15/23 07/15/23 10:47 10:47 10:47 WBC 4.90 Hgb 11.6 L Hct 35.9 L Plt Count 171 PT 13.1 H INR 1.20 APTT 37.3 H Sodium 139 Potassium 3.3 L BUN 17 Creatinine 0.74 Glucose 93 Assessment and Plan - Plan Assessment and plan Acute CVA rule out Left-sided weakness and numbness Migraine - Head CT report "No acute intracranial abnormality is seen" - Consulted Neurology - recommendations appreciated - Admit under observation status - NIHSS = 1 for decreased sensation - Allow permissive hypertension for tonight - q4hr neurochecks - Ordered MRI w/o brain + CTA head/neck - Ordered TTE - PT/OT evaluation requested - Ordered risk profile: Hgb A1c, lipid panel, TSH /free T4 - aspirin, atorvastatin, folic acid, plavix -Likely treat the migraine when MRI results d/t the vessel constriction that most migraine medications cause Diabetes mellitus -Serum glucose 93 -Accu-Chek and sliding scale insulin History of hypertension -Allow permissive HTN tonight History of osteoarthritis -Continue home medication DVT PPx SCD Full code LOS 1 day Discharge Plan: Home Plan to discharge in: 24 Hours - Advance Directives Does patient have a Living Will: No Does patient have a Durable POA for Healthcare: No
[2023-07-15] MEDS: ASPIRIN EC 81 MG TAB PO ONE (13:57)
[2023-07-15 14:51] LABS: RPR Titer ND
[2023-07-15 15:26] VITALS: BMI 26.6
[2023-07-15] MEDS: CLOPIDOGREL 75 MG TABLET PO SCH (16:02)
[2023-07-15] MEDS: FOLIC ACID 1 MG TABLET PO SCH (16:02)
[2023-07-15] MEDS: NA CHLORIDE 0.9% 1,000 ML IV SCH (16:02)
--- NOTE | 2023-07-15 16:46 | RAD REPORT ---
EXAM DESCRIPTION: CT - Head angio - 07/15/2023 3:11 pm CLINICAL HISTORY: cva r/o COMPARISON: Head Brain Wo Cont dated 07/15/2023; Head Brain Wo Cont dated 02/27/2019; Neck Angio dated 07/15/2023 TECHNIQUE: Axial CT angiography images of the head was performed with multiplanar and maximum intens ity projection reconstructions. Images performed following intravenous administration of iodinated c ontrast. All CT scans are performed using dose optimization technique as appropriate and may include automated exposure control or mA/KV adjustment according to patient size. FINDINGS: No evidence of large vessel occlusion. No evidence of aneurysm or dissection flap is detec javier. No flow-limiting stenosis or vascular malformation identified. Antegrade flow is seen in the vertebral arteries. The vertebral arteries are codominant. The visualized dural venous sinuses are grossly patent. IMPRESSION: No evidence of large vessel occlusion or flow-limiting stenosis.
--- NOTE | 2023-07-15 16:54 | RAD REPORT ---
EXAM DESCRIPTION: CT - Neck Angio - 07/15/2023 3:20 pm CLINICAL HISTORY: cva r/o TECHNIQUE: Axial CT angiography images of the neck was performed with multiplanar and maximum intens ity projection reconstructions. Images performed following intravenous administration of iodinated c ontrast. All CT scans are performed using dose optimization technique as appropriate and may include automated exposure control or mA/KV adjustment according to patient size. Quantification of carotid stenosis, if any, is performed according to NASCET criteria. FINDINGS: A left aortic arch is identified with normal three vessel configuration of the great vesse ls. No significant flow abnormality is seen of the common carotid bilaterally. No significant stenosis is identified involving the cervical segments of both internal carotid arteri es. Normal flow is seen within both vertebral arteries. IMPRESSION: No significant flow abnormality of the neck vessels is identified. CAROTID STENOSIS REFERENCE USING NASCET CRITERIA: % ICA stenosis = (1 - narrowest ICA diameter/diameter of distal cervical ICA) x 100. Mild - <50% stenosis. Moderate - 50-69% stenosis. Severe - 70-94% stenosis. Near occlusion - 95-99% stenosis. Occluded - 100% stenosis.
[2023-07-15] MEDS ORDERED: ACETAMINOPHEN 500 MG TAB PO PRN (18:28)
--- NOTE | 2023-07-15 20:42 | RAD REPORT ---
EXAM DESCRIPTION: MRI - Brain Wo Cont - 07/15/2023 5:07 pm CLINICAL HISTORY: CVA rule out COMPARISON: Head CT and CT angiogram of the same date TECHNIQUE: Multiplanar multisequence MRI of the brain performed without IV contrast. FINDINGS: No evidence of acute infarct or other diffusion signal abnormality. No evidence of acute intracranial hemorrhage or abnormal extra-axial fluid collections. Mild diffuse parenchymal volume loss. Ventricular caliber otherwise within normal for age. Midline st ructures are unremarkable. Scattered subcortical and deep white matter T2/FLAIR hyperintensities, nonspecific, but suggestive of chronic small vessel ischemic changes. No mass effect or midline shift. Major vascular flow voids are preserved. Mastoid air cells and paranasal sinuses are clear. IMPRESSION: No acute intracranial process. No evidence of ventriculomegaly or mass effect.
[2023-07-15] MEDS: ATORVASTATIN 40 MG TAB PO SCH (21:08)
[2023-07-15] MEDS: POTASSIUM CL SA 10 MEQ TAB PO ONE (21:08)
[2023-07-15 22:52] VITALS: O2SAT 97
[2023-07-16 02:31] LABS: Absolute Eosinophils 0.2 K/uL (0-0.5); Absolute Lymphocytes (CBC) 1.9 K/uL (0.7-4.9); Absolute Monocytes 0.5 K/uL (0.1-1.3); Absolute Neutrophil 2.5 K/uL (1.8-8.0); Basophils % 0.6 % (0-1.3); Eosinophils % 3.2 % (0-4.4); Hematocrit 34.5 % (36.0-45.0); Lymphocytes % 37.7 % (15.3-44.8); MCH 25.6 pg (27.0-35.0); MCHC 31.9 g/dL (32.0-36.0); MCV 80.4 fL (80-100); MPV 9.8 fL (7.6-11.3); Monocytes % 9.4 % (3.3-12.3); Neutrophils % 49.1 % (41.7-73.7); Nucleated Red Blood Cells % 0.1 % (0-0); Platelets 154 thou/uL (152-406); Red Cell Distribution Width 13.2 % (12.1-15.2)
[2023-07-16 02:57] LABS: Anion Gap 6.5 mEq/L (5.0-15.0); BUN Blood Urea Nitrogen 19 mg/dL (7-18); Bicarbonate 27 mEq/L (21-32); Glomerular Filtration Rate 95 ml/min (=/>90); Glucose Level 129 mg/dL (74-106); HDL Cholesterol 40 mg/dL (40-60); LDL Cholesterol, Calculated 83 mg/dL (<130); LDL Cholesterol,Calc NonReport 83; Magnesium 1.6 mg/dL (1.6-2.4); Phosphorus 3.2 mg/dL (2.5-4.9); Potassium 3.5 mEq/L (3.5-5.1); Sodium Level 137 mEq/L (136-145); Thyroid Stimulating Hormone 0.821 uIU/mL (0.358-3.740)
[2023-07-16 03:01] LABS: T4,Total > 24.0 ug/dL (4.8-13.9)
[2023-07-16] MEDS: MAGNESIUM SULFATE 1 gm IVPB 1 GM/100 ML BAG IV ONE (04:29)
[2023-07-16] MEDS: ASPIRIN EC 81 MG TAB PO SCH (08:12)
[2023-07-16] MEDS: POTASSIUM CL SA 10 MEQ TAB PO ONE ×2 (08:13→10:57)
[2023-07-16 08:38] VITALS: BP 146/85; TEMP 96.9
--- NOTE | 2023-07-16 09:56 | P.DS ---
Admission Date: 07/15/23 Discharge Date: 07/16/23 Disposition: ROUTINE DISCHARGE Discharge Condition: GOOD Reason for Admission: left sided weakness, migraine headache Brief History of Present Illness: Patient is 52 years of age. With dizziness weakness of the left side that was transient and associated with severe headaches Hospital Course: Patient has a history of severe migrainous attacks then developed and transient weakness of the left side with some dysphagia where she recovered very quickly MRI scan CT scan was all negative time of discharge patient alert oriented responsive cooperative denies any weakness of her left side headache has improved does take Quilipta at home was also very hypokalemic have advised her to stop the hydrochlorothiazide just take only losartan and replace it with p otassium 20 mill equivalents equivalents daily time of discharge patient alert oriented responsive cooperative vital signs all normal no obvious neurological deficit agreeable to go home and return to work in on Tuesday carotid Dopplers were also negative Vital Signs/Physical Exam: Temp Pulse Resp BP Pulse Ox 96.9 F 77 16 146/85 H 98 07/16/23 08:00 07/16/23 08:00 07/16/23 08:00 07/16/23 08:00 07/16/23 08:00 Laboratory Data at Discharge: WBC 5.00 thou/uL (4.3-10.9) 07/16/23 02:07 Hgb 11.0 g/dL (12.0-15.0) L 07/16/23 02:07 Hct 34.5 % (36.0-45.0) L 07/16/23 02:07 Plt Count 154 thou/uL (152-406) 07/16/23 02:07 PT 13.1 SECONDS (9.5-12.5) H 07/15/23 10:47 INR 1.20 07/15/23 10:47 APTT 37.3 SECONDS (24.3-36.9) H 07/15/23 10:47 Sodium 137 mEq/L (136-145) 07/16/23 02:07 Potassium 3.5 mEq/L (3.5-5.1) 07/16/23 02:07 BUN 19 mg/dL (7-18) H 07/16/23 02:07 Creatinine 0.76 mg/dL (0.55-1.02) 07/16/23 02:07 Glucose 129 mg/dL (74-106) H 07/16/23 02:07 Phosphorus 3.2 mg/dL (2.5-4.9) 07/16/23 02:07 Magnesium 1.6 mg/dL (1.6-2.4) 07/16/23 02:07 Triglycerides 115 mg/dL (<150) 07/16/23 02:07 Cholesterol 146 mg/dL (<200) 07/16/23 02:07 HDL Cholesterol 40 mg/dL (40-60) 07/16/23 02:07 Cholesterol/HDL Ratio 3.65 07/16/23 02:07 Home Medications: Amlodipine [Norvasc*] 5 mg PO DAILY 07/15/23 Atogepant [Qulipta] 60 mg PO DAILY 07/15/23 Cetirizine HCl [Zyrtec] 10 mg PO 07/15/23 Eszopiclone 2 mg PO BEDTIME 07/15/23 Famotidine [Pepcid] 20 mg PO DAILY 07/15/23 Meloxicam 7.5 mg PO BID 07/15/23 Montelukast [Singulair*] 10 mg PO DAILY 07/15/23 Ondansetron [Zofran (Odt)*] 4 mg PO Q6H PRN 07/15/23 Losartan Potassium 50 mg PO DAILY 30 Days #30 tab 07/16/23 Potassium Chloride 20 meq PO DAILY 15 Days #15 tab 07/16/23 New Medications: Losartan Potassium 50 mg PO DAILY 30 Days #30 tab Potassium Chloride 20 meq PO DAILY 15 Days #15 tab Physician Discharge Instructions: Patient to stay off work until July 19 can resume regular job duties/losartan with hydrochlorothiazide discontinued and to take only losartan and potassium Diet: Regular Activity: Ad mauro Followup: Ck Tapia MD [Primary Care Provider] -
--- NOTE | 2023-07-16 13:55 | EKG ---
Test Date: 2023-07-15 Test Time: 10:37:47 Dental Ceramist Assistant: VINICIO MEASUREMENT RESULTS: Intervals: Rate: 73 ND: 202 QRSD: 78 QT: 384 QTc: 423 [place]: P: 71 ND: 202 QRS: 72 T: 70 INTERPRETIVE STATEMENTS: Normal sinus rhythm Nonspecific T wave abnormality Abnormal ECG Compared to ECG 02/27/2019 10:18:50 Prolonged QT interval no longer present T-wave abnormality still present Electronically Signed On 07-16-23 13:53:45 CDT by Reno Sheth
[2023-07-17] MEDS ORDERED: ATOGEPANT 60 MG PO SCH (09:00)
[2023-07-17] MEDS ORDERED: AMLODIPINE 5 MG TAB PO SCH (09:00)
[2023-07-18 04:51] LABS: RPR (Rapid Plasma Reagin) NON-REACT (NON-REACT)
[2023-07-18 16:09] LABS: Abnormal Protein Band 1 REPORT; Albumin, (SPE) 3.7 g/dL (3.8-4.8); Alpha-1-Globulins 0.3 g/dL (0.2-0.3); Alpha-2-Globulins 0.8 g/dL (0.5-0.9); Beta 1 Globulin 0.5 g/dL (0.4-0.6); Gamma Globulins 1.9 g/dL (0.8-1.7); INTERPRETATION REPORT; Total Protein 7.7 g/dL (6.1-8.1)
== END 2023-07-16 11:31 | disposition home or self-care (01) ==
LOC: ER 09:41 → ERHOLD 13:46 → 2ND 14:47
PROVIDERS: ADMIT Internal Medicine Sleep Medicine; ATTEND Internal Medicine Sleep Medicine
DX: R53.1 Weakness (principal); G43.909 Migraine, unspecified, not intractable, without status migrainosus; R42 Dizziness and giddiness; R13.10 Dysphagia, unspecified; E87.6 Hypokalemia; R73.03 Prediabetes; I10 Essential (primary) hypertension; E11.9 Type 2 diabetes mellitus without complications; M19.90 Unspecified osteoarthritis, unspecified site; R10.9 Unspecified abdominal pain; Z91.040 Latex allergy status; Z91.013 Allergy to seafood
CPT/HCPCS: 93005; 85025 ×2; 81001; 80048 ×2; 36415; 83735; 84100; 85610; 80061; 86592; 85730; 84436; 84443; 83036; 84484 ×3; 82607; 81241; 81240; 82306; 85302; 85305; 85306; 86021; 86147 ×2; 84165; 70450; 70496; 70498; 71045; 70551; 97116; 97161; 99285; Q9967; J3475; J7030 ×2; G0378

== ENCOUNTER 2024-01-23 11:44 | Emergency (ER) | payer BC ==
--- OUTSIDE RECORDS SUMMARY | 2024-01-23 11:47 | XMS REPORT | Clinical Summary ---
Author Name Unknown Organization [facility] MD [facility] Address [address] [place] [address] Care Team Providers Care Coiled Coil Inspector Name Role Phone Ck Tapia MD [phone] Glory Whaley APRN Primary Care Provider [phone] Allergies Active Allergy Reactions Criticality Noted Date Comments Latex, Natural Rubber 08/03/2023 Medications amLODIPine (NORVASC) 5 mg tablet Take 1 tablet (5 mg) by mouth daily. Active cetirizine 10 mg TbDL Dissolve 1 tablet on the tongue daily. 05/27/2021 Active Pepcid 20 mg tablet Take 1 tablet (20 mg) by mouth daily. 05/30/2021 Active losartan (COZAAR) 100 mg tablet Take 1 tablet (100 mg) by mouth daily. 03/01/2018 Active meloxicam (MOBIC) 7.5 mg tablet Take 1 tablet (7.5 mg) by mouth daily. Active montelukast (SINGULAIR) 10 mg tablet Take 1 tablet (10 mg) by mouth daily. 05/30/2021 Active predniSONE (DELTASONE) 5 mg tablet Take 1 tablet (5 mg) by mouth daily. 07/30/2023 Active Active Problems Problem Noted Date Diagnosed Date Other abnormal and inconclus fili findings on diagnostic imaging of breast 08/04/2023 Encounters Date Type Department Care Team Description 08/05/2023 Telephone Cancer Prevention Center [address] [facility], 2nd [place] [address] Rocio Gerardo RN 08/04/2023 Orders Only Undiagnosed Breast Clinic in [facility] [address] [facility] [address] [place] [address] Glory Whaley APRN Heterogeneously dense breast composition (Primary Dx); Encounter for other screening for malignant neoplasm of breast 08/03/2023 3:20 PM CDT Clinical Support Undiagnosed Breast Clinic [address] [place] [address], 5th [place] [address] Glory Whaley APRN 08/03/2023 12:04 PM CDT - 08/03/2023 11:59 PM CDT Hospital Encounter Breast Imaging [address] [place] [address], 5th Floor [facility] [place] [address] Glory Whaley APRN Other abnormal and inconclusive findings on diagnostic imaging of breast Discharge Disposition: Home 08/03/2023 10:41 AM CDT - 08/03/2023 12:03 PM CDT Hospital Encounter Breast Imaging [address] [place] [address], 5th Floor [facility] [place] [address] Glory Whaley APRN Other abnormal and inconclusive findings on diagnostic imaging of breast Discharge Disposition: Home 08/03/2023 10:00 AM CDT Office Visit Undiagnosed Breast Clinic [address] [place] [address], [address] [place], [place] [address] [address] Glory Whaley APRN Other abnormal and inconclusive findings on diagnostic imaging of breast (Primary Dx) 08/03/2023 Travel 08/02/2023 8:00 PM CDT Ancillary Procedure Image Library [address] [place] [address] Glory Whaley APRN Cancer 08/01/2023 8:15 PM CDT Ancillary Procedure Image Library [address] [place] [address] Glory Whaley APRN Cancer 08/01/2023 8:10 PM CDT Ancillary Procedure Image [facility] [address] [place] [address] Glory Whaley APRN Cancer 08/01/2023 8:05 PM CDT Ancillary Procedure Image [facility] [address] [place] [address] Glory Whaley APRN Cancer 08/01/2023 8:00 PM CDT Ancillary Procedure Image Library [address] [place] [address] Glory Whaley APRN Cancer 08/01/2023 10:00 AM CDT NPR MDA PATIENT ACCESS 05/24/2023 Orders Only Undiagnosed Breast Clinic in [facility] [address] [place] [address] [address] [place] [address] Glory Whaley, JANETTE Other abnormal and inconclusive findings on diagnostic imaging of breast (Primary Dx) 04/04/2023 8:20 PM MESMERIST Ancillary Procedure Image Library [address] [place] [id number] Cancer 04/04/2023 8:15 PM MESMERIST Ancillary Procedure Image Library [address] [place] [address] Cancer 04/04/2023 8:10 PM MESMERIST Ancillary Procedure Image Library [address] [place] [address] Cancer 04/04/2023 8:05 PM MESMERIST Ancillary Procedure Image Library [address] [place] [address] Cancer 04/04/2023 8:00 PM MESMERIST Ancillary Procedure Image Library [address] [place] [address] Cancer after 01/23/2023 Immunizations Name Administration Dates Next Due Tdap 09/14/2012 Surgical History Surgery Date Site/Laterality Comments PARTIAL HYSTERECTOMY 02/14/2010 - 02/13/2011 COLONOSCOPY 02/15/2020 - 02/13/2021 (OS) ; polyps; benign BREAST BIOPSY 01/14/2023 - 02/13/2023 Left benign SECTION, CLASSIC 02/14/1995 - 02/14/1996 Medical History Medical History Date Comments Seasonal allergic rhinitis Essential (primary) hypertension Osteoarthritis Family History Medical History Relation Name Comments Breast cancer Other great aunt Relation Name Status Comments Other Social History Tobacco Use Types Packs/Day Years Used Date Smoking Tobacco: Never Smokeless Tobacco: Never Tobacco Cessation:Counseling Given: Not Answered Alcohol Use Standard Drinks/Week Comments Not Currently 0 (1 standard drink = 0.6 oz pur e alcohol) Comments No Sex and Gender Information Value Date Recorded Sex Assigned at Female 04/04/2023 12:20 PM MESMERIST Legal Sex Female 1:27 PM MESMERIST Gender Identity Female 04/04/2023 12:20 PM MESMERIST Sexual Orientation Not on file Obstetrics History Para Term AB IAB SAB Ectopic Multiple Livin g Live Births 2 2 Date Outcome GA Total Labor Labor/2nd/3rd Weight Sex Type Anes PTL Luma A1 A5 Name Clin Para Para Comments Menarche: 14 Parity: 20 OBC: used for 2 years Hormonal Therapy: none Last Pap: (OS) 2020 ; normal Abnormal Pap: none Last Jolie: (OS) 01/21/2023 Last Colon: (OS) 2020; polyps; benign Breast Bx: (OS); (L) breast; 01/2023 ; benign Last Filed Vital Signs Vital Sign Reading Time Taken Comments Blood Pressure 154/86 08/03/2023 3:32 PM CDT Pulse 75 08/03/2023 3:32 PM CDT Temperature - - Respiratory Rate 18 08/03/2023 3:32 PM CDT Oxygen Saturation 100% 08/03/2023 3:32 PM CDT Inhaled Oxygen Concentration - - Weight 79.1 kg (174 lb 6.1 oz) 08/03/2023 9:41 A M CDT Height 170 cm (5' 6.93") 08/03/2023 9:41 AM CDT Body Mass Index 27.37 08/03/2023 9:41 AM CDT Plan of Treatment Upcoming Encounters Date Type Department Care Team (Late st Contact Info) Description 08/08/2024 11:40 AM CDT Appointment Breast Imaging [address] [facility], 5th [place] [address] Glory Whaley, FOOD AND DRUG INSPECTOR [address] [place] [address] [email or web address] 08/08/2024 1:00 PM CDT Appointment Breast Imaging [address] [facility], 5th [place] [address] Glory Whaley, FOOD AND DRUG INSPECTOR [address] [place] [address] [email or web address] 08/08/2024 2:00 PM CDT Office Visit Undiagnosed Breast Clinic [address] [facility], 5th [place] [address] Glory Whaley, FOOD AND DRUG INSPECTOR [address] [place] [address] [email or web address] Maintenance Due Date Last Done Comments COVID-19 Vaccine (2023-2 5 season) 2023 Influenza Vaccine (#1) 2023 Pneumococcal Vaccine: Pediat rics (0 to 5 Years) and At-Risk Patients (6 to 64 Years) Aged Out No longer eligi ble based on patient's age to complete this topic Procedures Procedure Name Priority Date/Time Associated Diagnosis Comments US BREAST FINE NEEDLE ASPIRATION - LEFT Routine 08/03/2023 3:37 PM CDT Other abnormal and inconclusive findings on diagnostic imaging of breast US CHEST Routine 08/03/2023 3:37 PM CDT Other abnormal and inconclusive findings on diagnostic imaging of breast US BREAST COMPLETE LEFT Routine 08/03/2023 3:37 PM CDT Other abnormal and inconclusive findings on diagnostic imaging of breast CYTOLOGY IMAGE-GUIDED FNA INTERPRETATION Routine 08/03/2023 2:15 PM CDT Other abnormal and inconclusive findings on diagnostic imaging of breast MAMMO DIGITAL DIAGNOSTIC BILATERAL W JUAN DANIEL Routine 08/03/2023 12:05 PM CDT Other abnormal and inconclusive findings on diagnostic imaging of breast OSI US BREAST BIOPSY Routine 02/02/2023 8:54 PM MESMERIST Cancer OSI MAMMOGRAPHY UNILATERAL LEFT Routine 02/02/2023 8:54 PM MESMERIST Cancer OSI US BREAST Routine 01/25/2023 3:00 PM MESMERIST Cancer after 01/23/2023 Results * US Breast FNA Left (08/03/2023 3:37 PM CDT) Anatomical Region Laterality Modality Breast Left Ultrasound 08/03/2023 3:50 PM CDT Addenda Addendum by Riri Meyers MD on 08/04/2023 4:05 PM CDT Breast, left, fine needle aspiration: No malignant cells identified Rare fragment of ductal epithelial cells The benign pathology is concordant with imaging findings. Recommend follow up mammography and ultrasound in one year. Impressions 08/03/2023 3:58 PM CDT 1. Previously noted left axillary adenopathy has regained a normal appearance. 2. Previously seen left breast 2 o'clock mass likely represents an inspissated cyst and has been stable. 3. Left breast intraductal retroareolar mass is of low suspicion for malignancy. Ultrasound-guided biopsy was performed to follow. ACR BI-RADS Category: 4A. Low suspicion. Final biopsy results will be reported in an addendum. Narrative 08/03/2023 3:58 PM CDT FULL RESULT: Examination: US BREAST COMPLETE LEFT, US CHEST, US BREAST FINE NEEDLE ASPIRATION - LEFT 08/03/2023 3:37 PM Clinical History: 52 year-old woman with prior abnormal breast imaging presenting for follow-up Indication: Abnormal breast imaging Comparison: Outside facility ultrasound and ultrasound-guided biopsy 01/25/2023 and 02/02/2023. Prior mammograms dating back to 2014. Technique: Real-time sonographic imaging of the left breast (including all 4 quadrants and retroareolar region) was performed. Ultrasound imaging was performed of the left axilla (levels I, II, and III) and left chest/mediastinum (to evaluate the internal mammary lymph nodes). Images were obtained in multiple scanning planes. Findings: Previously demonstrated 0.5 cm mass with circumscribed margins at the 2 o'clock position 7 cm from the nipple is unchanged and likely represents an inspissated cyst. Incidental note is made of an intraductal mass in the retroareolar region within an ectatic duct. The mass measures 0.6 x 0.6 x 0.4 cm. This may represent debris versus papilloma. The patient reports one recent incident of clear nipple discharge. Ultrasound guided biopsy is recommended and was performed to follow. Left dagoberto basins: There is a normal lymph node in the left axilla with associated postbiopsy clip marker. The previously seen cortical thickening has resolved consistent with benign reactive etiology. There is no axillary (level I, II, III) or internal mammary lymphadenopathy. Procedure(s): Ultrasound-Guided Breast Biopsy - Left Attending Radiologist: Riri Meyers. Fellow: None. Consent: The procedure(s), risks, indications, and alternatives were explained. All questions were answered and informed consent was obtained. Procedure(s) in Detail: A time-out was performed prior to the start of the procedure and the correct patient, procedure, presence of consent, site, and side were confirmed with all members of the team. The skin was prepped in the usual sterile fashion with chlorhexidine. Lidocaine 1 percent was administered for local anesthesia. Biopsy of left breast retroareolar mass was performed under direct sonographic guidance using a 21-gauge needle. Number of biopsy passes: 1. The mass collapsed completely with aspiration consistent with debris. No clip marker was placed. Pressure was held at the procedure site until cessation of bleeding, and the skin was covered with a bandage. Post-procedure Mammography: Not performed. Estimated Blood Loss: Minimal. Specimen(s) Removed: Yes Immediate Complications: None. Post-procedure diagnosis: Breast mass. Disposition: The patient tolerated the procedure well and was discharged home in good condition. Procedure Note Riri Meyers MD - 08/03/2023 FULL RESULT: Examination: US BREAST COMPLETE LEFT, US CHEST, US BREAST FINE NEEDLEASPIRATION - LEFT 08/03/2023 3:37 PM Clinical History: 52 year-old woman with prior abnormal breast imagingpresenting for follow-up Indication: Abnormal breast imaging Comparison: Outside facility ultrasound and ultrasound-guided copmwu1801/25/2023 and 02/02/2023. Prior mammograms dating back to 2014. Technique: Real-time sonographic imaging of the left breast (including all4 quadrants and retroareolar region) was performed. Ultrasound imaging wasperformed of the left axilla (levels I, II, and III) and leftchest/mediastinum (to evaluate the internal mammary lymph nodes). Imageswere obtained in multiple scanning planes. Findings: Previously demonstrated 0.5 cm mass with circumscribed margins at the 2o'clock position 7 cm from the nipple is unchanged and likely representsan inspissated cyst. Incidental note is made of an intraductal mass in the retroareolar regionwithin an ectatic duct. The mass measures 0.6 x 0.6 x 0.4 cm. This mayrepresent debris versus papilloma. The patient reports one recent incidentof clear nipple discharge. Ultrasound guided biopsy is recommended and wasperformed to follow. Left dagoberto basins: There is a normal lymph node in the left axilla withassociated postbiopsy clip marker. The previously seen cortical thickeninghas resolved consistent with benign reactive etiology. There is noaxillary (level I, II, III) or internal mammary lymphadenopathy. Procedure(s): Ultrasound-Guided Breast Biopsy - Left Attending Radiologist: Riri Meyers. Fellow: None. Consent: The procedure(s), risks, indications, and alternatives wereexplained. All questions were answered and informed consent wasobtained. Procedure(s) in Detail: A time-out was performed prior to the start of theprocedure and the correct patient, procedure, presence of consent, site,and side were confirmed with all members of the team. The skin was preppedin the usual sterile fashion with chlorhexidine. Lidocaine 1 percent wasadministered for local anesthesia. Biopsy of left breast retroareolar masswas performed under direct sonographic guidance using a 21-gauge needle.Number of biopsy passes: 1. The mass collapsed completely with aspirationconsistent with debris. No clip marker was placed. Pressure was held at the procedure site until cessation of bleeding, andthe skin was covered with a bandage. Post-procedure Mammography: Not performed. Estimated Blood Loss: Minimal. Specimen(s) Removed: Yes Immediate Complications: None. Post-procedure diagnosis: Breast mass. Disposition: The patient tolerated the procedure well and was dischargedhome in good condition. IMPRESSION: 1. Previously noted left axillary adenopathy has regained a normalappearance. 2. Previously seen left breast 2 o'clock mass likely represents aninspissated cyst and has been stable. 3. Left breast intraductal retroareolar mass is of low suspicion formalignancy. Ultrasound-guided biopsy was performed to follow. ACR BI-RADS Category: 4A. Low suspicion. Final biopsy results will be reported in an addendum. us Glory Wahley APRN [facility] US ORDERABLES Edited Resul t - Final * US Chest for Breast Ultrasound (Add-on Only) (08/03/2023 3:37 PM CDT) Anatomical Region Laterality Modality Chest Bilateral Ultrasound 08/03/2023 3:50 PM CDT Addenda Addendum by Riri Meyers MD on 08/04/2023 4:05 PM CDT Breast, left, fine needle aspiration: No malignant cells identified Rare fragment of ductal epithelial cells The benign pathology is concordant with imaging findings. Recommend follow up mammography and ultrasound in one year. Impressions 08/03/2023 3:58 PM CDT 1. Previously noted left axillary adenopathy has regained a normal appearance. 2. Previously seen left breast 2 o'clock mass likely represents an inspissated cyst and has been stable. 3. Left breast intraductal retroareolar mass is of low suspicion for malignancy. Ultrasound-guided biopsy was performed to follow. ACR BI-RADS Category: 4A. Low suspicion. Final biopsy results will be reported in an addendum. Narrative 08/03/2023 3:58 PM CDT FULL RESULT: Examination: US BREAST COMPLETE LEFT, US CHEST, US BREAST FINE NEEDLE ASPIRATION - LEFT 08/03/2023 3:37 PM Clinical History: 52 year-old woman with prior abnormal breast imaging presenting for follow-up Indication: Abnormal breast imaging Comparison: Outside facility ultrasound and ultrasound-guided biopsy 01/25/2023 and 02/02/2023. Prior mammograms dating back to 2014. Technique: Real-time sonographic imaging of the left breast (including all 4 quadrants and retroareolar region) was performed. Ultrasound imaging was performed of the left axilla (levels I, II, and III) and left chest/mediastinum (to evaluate the internal mammary lymph nodes). Images were obtained in multiple scanning planes. Findings: Previously demonstrated 0.5 cm mass with circumscribed margins at the 2 o'clock position 7 cm from the nipple is unchanged and likely represents an inspissated cyst. Incidental note is made of an intraductal mass in the retroareolar region within an ectatic duct. The mass measures 0.6 x 0.6 x 0.4 cm. This may represent debris versus papilloma. The patient reports one recent incident of clear nipple discharge. Ultrasound guided biopsy is recommended and was performed to follow. Left dagoberto basins: There is a normal lymph node in the left axilla with associated postbiopsy clip marker. The previously seen cortical thickening has resolved consistent with benign reactive etiology. There is no axillary (level I, II, III) or internal mammary lymphadenopathy. Procedure(s): Ultrasound-Guided Breast Biopsy - Left Attending Radiologist: Riri Meyers. Fellow: None. Consent: The procedure(s), risks, indications, and alternatives were explained. All questions were answered and informed consent was obtained. Procedure(s) in Detail: A time-out was performed prior to the start of the procedure and the correct patient, procedure, presence of consent, site, and side were confirmed with all members of the team. The skin was prepped in the usual sterile fashion with chlorhexidine. Lidocaine 1 percent was administered for local anesthesia. Biopsy of left breast retroareolar mass was performed under direct sonographic guidance using a 21-gauge needle. Number of biopsy passes: 1. The mass collapsed completely with aspiration consistent with debris. No clip marker was placed. Pressure was held at the procedure site until cessation of bleeding, and the skin was covered with a bandage. Post-procedure Mammography: Not performed. Estimated Blood Loss: Minimal. Specimen(s) Removed: Yes Immediate Complications: None. Post-procedure diagnosis: Breast mass. Disposition: The patient tolerated the procedure well and was discharged home in good condition. Procedure Note Riri Meyers MD - 08/03/2023 FULL RESULT: Examination: US BREAST COMPLETE LEFT, US CHEST, US BREAST FINE NEEDLEASPIRATION - LEFT 08/03/2023 3:37 PM Clinical History: 52 year-old woman with prior abnormal breast imagingpresenting for follow-up Indication: Abnormal breast imaging Comparison: Outside facility ultrasound and ultrasound-guided [id number]/25/2023 and 02/02/2023. Prior mammograms dating back to 2014. Technique: Real-time sonographic imaging of the left breast (including all4 quadrants and retroareolar region) was performed. Ultrasound imaging wasperformed of the left axilla (levels I, II, and III) and leftchest/mediastinum (to evaluate the internal mammary lymph nodes). Imageswere obtained in multiple scanning planes. Findings: Previously demonstrated 0.5 cm mass with circumscribed margins at the 2o'clock position 7 cm from the nipple is unchanged and likely representsan inspissated cyst. Incidental note is made of an intraductal mass in the retroareolar regionwithin an ectatic duct. The mass measures 0.6 x 0.6 x 0.4 cm. This mayrepresent debris versus papilloma. The patient reports one recent incidentof clear nipple discharge. Ultrasound guided biopsy is recommended and wasperformed to follow. Left dagoberto basins: There is a normal lymph node in the left axilla withassociated postbiopsy clip marker. The previously seen cortical thickeninghas resolved consistent with benign reactive etiology. There is noaxillary (level I, II, III) or internal mammary lymphadenopathy. Procedure(s): Ultrasound-Guided Breast Biopsy - Left Attending Radiologist: Riri Meyers. Fellow: None. Consent: The procedure(s), risks, indications, and alternatives wereexplained. All questions were answered and informed consent wasobtained. Procedure(s) in Detail: A time-out was performed prior to the start of theprocedure and the correct patient, procedure, presence of consent, site,and side were confirmed with all members of the team. The skin was preppedin the usual sterile fashion with chlorhexidine. Lidocaine 1 percent wasadministered for local anesthesia. Biopsy of left breast retroareolar masswas performed under direct sonographic guidance using a 21-gauge needle.Number of biopsy passes: 1. The mass collapsed completely with aspirationconsistent with debris. No clip marker was placed. Pressure was held at the procedure site until cessation of bleeding, andthe skin was covered with a bandage. Post-procedure Mammography: Not performed. Estimated Blood Loss: Minimal. Specimen(s) Removed: Yes Immediate Complications: None. Post-procedure diagnosis: Breast mass. Disposition: The patient tolerated the procedure well and was dischargedhome in good condition. IMPRESSION: 1. Previously noted left axillary adenopathy has regained a normalappearance. 2. Previously seen left breast 2 o'clock mass likely represents aninspissated cyst and has been stable. 3. Left breast intraductal retroareolar mass is of low suspicion formalignancy. Ultrasound-guided biopsy was performed to follow. ACR BI-RADS Category: 4A. Low suspicion. Final biopsy results will be reported in an addendum. us Glory Whaley APRN [facility] US ORDERABLES Edited Resul t - Final * US Breast Complete Left (08/03/2023 3:37 PM CDT) Anatomical Region Laterality Modality Breast Left Ultrasound 08/03/2023 3:50 PM CDT Addenda Addendum by Riri Meyers MD on 08/04/2023 4:05 PM CDT Breast, left, fine needle aspiration: No malignant cells identified Rare fragment of ductal epithelial cells The benign pathology is concordant with imaging findings. Recommend follow up mammography and ultrasound in one year. Impressions 08/03/2023 3:58 PM CDT 1. Previously noted left axillary adenopathy has regained a normal appearance. 2. Previously seen left breast 2 o'clock mass likely represents an inspissated cyst and has been stable. 3. Left breast intraductal retroareolar mass is of low suspicion for malignancy. Ultrasound-guided biopsy was performed to follow. ACR BI-RADS Category: 4A. Low suspicion. Final biopsy results will be reported in an addendum. Narrative 08/03/2023 3:58 PM CDT FULL RESULT: Examination: US BREAST COMPLETE LEFT, US CHEST, US BREAST FINE NEEDLE ASPIRATION - LEFT 08/03/2023 3:37 PM Clinical History: 52 year-old woman with prior abnormal breast imaging presenting for follow-up Indication: Abnormal breast imaging Comparison: Outside facility ultrasound and ultrasound-guided biopsy 01/25/2023 and 02/02/2023. Prior mammograms dating back to 2014. Technique: Real-time sonographic imaging of the left breast (including all 4 quadrants and retroareolar region) was performed. Ultrasound imaging was performed of the left axilla (levels I, II, and III) and left chest/mediastinum (to evaluate the internal mammary lymph nodes). Images were obtained in multiple scanning planes. Findings: Previously demonstrated 0.5 cm mass with circumscribed margins at the 2 o'clock position 7 cm from the nipple is unchanged and likely represents an inspissated cyst. Incidental note is made of an intraductal mass in the retroareolar region within an ectatic duct. The mass measures 0.6 x 0.6 x 0.4 cm. This may represent debris versus papilloma. The patient reports one recent incident of clear nipple discharge. Ultrasound guided biopsy is recommended and was performed to follow. Left dagoberto basins: There is a normal lymph node in the left axilla with associated postbiopsy clip marker. The previously seen cortical thickening has resolved consistent with benign reactive etiology. There is no axillary (level I, II, III) or internal mammary lymphadenopathy. Procedure(s): Ultrasound-Guided Breast Biopsy - Left Attending Radiologist: Riri Meyers. Fellow: None. Consent: The procedure(s), risks, indications, and alternatives were explained. All questions were answered and informed consent was obtained. Procedure(s) in Detail: A time-out was performed prior to the start of the procedure and the correct patient, procedure, presence of consent, site, and side were confirmed with all members of the team. The skin was prepped in the usual sterile fashion with chlorhexidine. Lidocaine 1 percent was administered for local anesthesia. Biopsy of left breast retroareolar mass was performed under direct sonographic guidance using a 21-gauge needle. Number of biopsy passes: 1. The mass collapsed completely with aspiration consistent with debris. No clip marker was placed. Pressure was held at the procedure site until cessation of bleeding, and the skin was covered with a bandage. Post-procedure Mammography: Not performed. Estimated Blood Loss: Minimal. Specimen(s) Removed: Yes Immediate Complications: None. Post-procedure diagnosis: Breast mass. Disposition: The patient tolerated the procedure well and was discharged home in good condition. Procedure Note Riri Meyers MD - 08/03/2023 FULL RESULT: Examination: US BREAST COMPLETE LEFT, US CHEST, US BREAST FINE NEEDLEASPIRATION - LEFT 08/03/2023 3:37 PM Clinical History: 52 year-old woman with prior abnormal breast imagingpresenting for follow-up Indication: Abnormal breast imaging Comparison: Outside facility ultrasound and ultrasound-guided [id number]/2023 and 02/02/2023. Prior mammograms dating back to 2014. Technique: Real-time sonographic imaging of the left breast (including all4 quadrants and retroareolar region) was performed. Ultrasound imaging wasperformed of the left axilla (levels I, II, and III) and leftchest/mediastinum (to evaluate the internal mammary lymph nodes). Imageswere obtained in multiple scanning planes. Findings: Previously demonstrated 0.5 cm mass with circumscribed margins at the 2o'clock position 7 cm from the nipple is unchanged and likely representsan inspissated cyst. Incidental note is made of an intraductal mass in the retroareolar regionwithin an ectatic duct. The mass measures 0.6 x 0.6 x 0.4 cm. This mayrepresent debris versus papilloma. The patient reports one recent incidentof clear nipple discharge. Ultrasound guided biopsy is recommended and wasperformed to follow. Left dagoberto basins: There is a normal lymph node in the left axilla withassociated postbiopsy clip marker. The previously seen cortical thickeninghas resolved consistent with benign reactive etiology. There is noaxillary (level I, II, III) or internal mammary lymphadenopathy. Procedure(s): Ultrasound-Guided Breast Biopsy - Left Attending Radiologist: Riri Meyers. Fellow: None. Consent: The procedure(s), risks, indications, and alternatives wereexplained. All questions were answered and informed consent wasobtained. Procedure(s) in Detail: A time-out was performed prior to the start of theprocedure and the correct patient, procedure, presence of consent, site,and side were confirmed with all members of the team. The skin was preppedin the usual sterile fashion with chlorhexidine. Lidocaine 1 percent wasadministered for local anesthesia. Biopsy of left breast retroareolar masswas performed under direct sonographic guidance using a 21-gauge needle.Number of biopsy passes: 1. The mass collapsed completely with aspirationconsistent with debris. No clip marker was placed. Pressure was held at the procedure site until cessation of bleeding, andthe skin was covered with a bandage. Post-procedure Mammography: Not performed. Estimated Blood Loss: Minimal. Specimen(s) Removed: Yes Immediate Complications: None. Post-procedure diagnosis: Breast mass. Disposition: The patient tolerated the procedure well and was dischargedhome in good condition. IMPRESSION: 1. Previously noted left axillary adenopathy has regained a normalappearance. 2. Previously seen left breast 2 o'clock mass likely represents aninspissated cyst and has been stable. 3. Left breast intraductal retroareolar mass is of low suspicion formalignancy. Ultrasound-guided biopsy was performed to follow. ACR BI-RADS Category: 4A. Low suspicion. Final biopsy results will be reported in an addendum. us Glory Whaley APRN [facility] US ORDERABLES Edited Resul t - Final * Cytology Image-Guided FNA Interpretation (08/03/2023 2:15 PM CDT) Gross Description Specimens procured: 2 Diff Quik; 2 Pap Stain Slides 10 ml, clear pink fluid in RPMI 1 Cytospin Size: 0.6 x 0.6 x 0.4 cm Immediate assessment for specimen adequacy was made x1 by Dr. Lemons. 08/04/2023 3:48 PM CDT [facility] Immediate Assessment Adequate cellularity, favor benign 08/04/2023 3:48 PM CDT [facility] Major Classification [facility]/benign 08/04/2023 3:48 PM CDT [facility] Diagnosis Breast, left, fine needle aspiration: No malignant cells identified Rare fragment of ductal epithelial cells 08/04/2023 3:48 PM CDT [facility] Retained/Biomark er Testing SR: 5 S 08/04/2023 3:48 PM CDT [facility] Informational Points Some tests reported here may have been developed and performance characteristics determined by [facility] Pathology and Laboratory Medicine. These tests have not been specifically cleared or approved by the [place].S. Food and Drug Administration. 08/04/2023 3:48 PM CDT [facility] Fine Needle Asp (Breast, Left) 08/03/2023 2:15 PM CDT 08/03/2023 3:13 PM CDT us Glory Acunasafia [facility]TOLOGY ORDERABLES Final Result [facility] [id number] [place] [address], [place] * Mammography Digital Diagnostic Bilateral with Juan Daniel (08/03/2023 12:05 PM CDT) Anatomical Region Laterality Modality Breast Bilateral Mammography 08/03/2023 3:52 PM CDT Impressions 08/03/2023 3:52 PM CDT Lymph node with associated postbiopsy clip is now benign appearing. An ultrasound exam is to follow. BI-RADS Category 2: Benign Finding(s) Narrative 08/03/2023 3:52 PM CDT CLINICAL INDICATION: Patient is a 52 year old female and is seen for abnormal breast imaging. MAMMO DIGITAL DIAGNOSTIC BILATERAL W JUAN DANIEL Digital Mammogram evaluated with Computer Aided Detection (CAD). COMPARISON: The present examination has been compared to prior imaging studies performed at an outside location on 02/13/2018, 07/26/2019, 07/25/2020, 01/06/2022, 01/21/2023 and 02/02/2023. FINDINGS: The breasts are heterogeneously dense, which may obscure small masses. There is an axillary lymph node with associated coil shaped post biopsy clip in the left axilla. Prior biopsy demonstrated benign findings. The lymph node has regained a normal appearance with resolution of previously seen cortical thickening. An ultrasound exam is to follow for complete evaluation. No dominant mass, distortion, or suspicious calcifications are identified in either breast. Ultrasound of the left breast is to follow for further evaluation of left breast mass seen on prior ultrasound which is mammographically occult. Tomosynthesis performed in CC and MLO projections. Procedure Note Riri Meyers MD - 08/03/2023 CLINICAL INDICATION: Patient is a 52 year old female and is seen for abnormal breast imaging. MAMMO DIGITAL DIAGNOSTIC BILATERAL W JUAN DANIEL Digital Mammogram evaluated with Computer Aided Detection (CAD). COMPARISON: The present examination has been compared to prior imaging studiesperformed at an outside location on 02/13/2018, 07/26/2019, 07/25/2020, 01/06/2022, 01/21/2023 and 02/02/2023. FINDINGS: The breasts are heterogeneously dense, which may obscure small masses. There is an axillary lymph node with associated coil shaped post biopsyclip in the left axilla. Prior biopsy demonstrated benign findings. The lymph nodehas regained a normal appearance with resolution of previously seen cortical thickening. An ultrasound exam is to follow for complete evaluation. No dominant mass, distortion, or suspicious calcifications are identifiedin either breast. Ultrasound of the left breast is to follow for furtherevaluation of left breast mass seen on prior ultrasound which is mammographicallyoccult. Tomosynthesis performed in CC and MLO projections. IMPRESSION: Lymph node with associated postbiopsy clip is now benign appearing. An ultrasound exam is to follow. BI-RADS Category 2: Benign Finding(s) us Glory Whaley APRN [facility] MAMMOGRAPHY ORDERABLES Fin al Result * [facility] MAMMOGRAPHY UNILATERAL LEFT (02/02/2023 8:54 PM MESMERIST) Narrative [facility] - 04/04/2023 8:54 PM MESMERIST Study acquired at another institution. For comparison only. No MD Francis originated interpretation requested or available. Ck Taipa MD [facility] OUTSIDE IMAGE ORDERABL ES Final Result Performing Organization Address [facility] Co de Phone Number [facility] * [facility] US Breast Biopsy (02/02/2023 8:54 PM MESMERIST) Narrative [facility] - 04/04/2023 8:54 PM MESMERIST Study acquired at another institution. For comparison only. No MD Francis originated interpretation requested or available. Ck JOINER OUTSIDE IMAGE ORDERABL ES Final Result Performing Organization Address [facility] Co de Phone Number [facility] * [facility] US Breast (01/25/2023 3:00 PM MESMERIST) Narrative [facility] - 08/01/2023 3:00 PM CDT Study acquired at another institution. For comparison only. No MD Francis originated interpretation requested or available. us Ck Tapia MD IMG OUTSIDE IMAGE ORDERABL ES Final Result [facility] after 01/23/2023 Insurance HMO BLUE[employer] Care Teams Coiled Coil Inspector Relationship Specialty Start Date End Date Ck Tapia MD [address] [place] [id number] [email or web address] PCP - External Primary Care Provider Internal Medicine 04/01/23 Glory Whaley APRN [address] [place] [address] [email or web address] PCP - General Cancer Prevention 05/23/23
--- NOTE | 2024-01-23 13:22 | RAD REPORT ---
EXAMINATION: ONE VIEW CHEST XR CLINICAL INDICATION: Female, 53 years old.,CHEST PAIN TECHNIQUE: Frontal chest projection is submitted. Examination is limited by patient positioning and t echnique. COMPARISON: 07/15/2023 FINDINGS: Infrahilar streaky opacities bilaterally, mildly progressive since prior exam. No pneumothorax or si zable effusion. The heart is normal in size. Mediastinal contours are unremarkable. IMPRESSION: Findings suggesting reactive airway changes or multifocal mild pneumonitis.
[2024-01-23] MEDS ORDERED: ONDANSETRON 4 MG/2 ML VIAL ONE (13:53)
[2024-01-23] MEDS ORDERED: MORPHINE 4 MG/ML SYR ONE (13:54)
[2024-01-23 14:02] LABS: Absolute Basophils 0.1 K/uL (0-0.5); Absolute Eosinophils 0.1 K/uL (0-0.5); Absolute Lymphocytes (CBC) 1.7 K/uL (0.7-4.9); Absolute Monocytes 0.8 K/uL (0.1-1.3); Absolute Neutrophil 6.2 K/uL (1.8-8.0); Basophils % 0.6 % (0-1.3); Eosinophils % 1.2 % (0-4.4); Hematocrit 41.8 % (36.0-45.0); Hemoglobin 13.1 g/dL (12.0-15.0); Lymphocytes % 19.4 % (15.3-44.8); MCH 25.4 pg (27.0-35.0); MCHC 31.3 g/dL (32.0-36.0); MPV 9.2 fL (7.6-11.3); Monocytes % 8.9 % (3.3-12.3); Neutrophils % 69.9 % (41.7-73.7); Platelets 223 thou/uL (152-406); RBC Red Blood Cell Count 5.16 M/uL (3.86-4.86); Red Cell Distribution Width 14.2 % (12.1-15.2)
[2024-01-23 14:23] LABS: Albumin 3.2 g/dL (3.4-5.0); Albumin/Globulin Ratio 0.7 (1.1-1.8); Anion Gap 6.3 mEq/L (5.0-15.0); Bilirubin Total 0.3 mg/dL (0.2-1.0); Globulin 4.8 g/dL (2.3-3.5); Potassium 3.3 mEq/L (3.5-5.1)
[2024-01-23 14:25] LABS: SARS-CoV-2 Antigen CONTROL BLUE LINE VIS/BG OK; SARS-CoV-2 Antigen Rapid Res Negative (Negative)
[2024-01-23] MEDS ORDERED: METHYLPREDNISOLONE 125 MG INJ ONE (16:08)
[2024-01-23] MEDS ORDERED: HYDROCODONE/APAP 5/325 MG TAB ONE (16:08)
[2024-01-23 16:55] LABS: Specific Gravity 1.015 (1.005-1.030); Sqamous Epithelial <5 /HPF (None Seen); Urine Bacteria None Seen /HPF (<20); Urine Bilirubin NEGATIVE (Negative); Urine Blood Negative (Negative); Urine Clarity Turbid (Clear); Urine Color Light-Yellow (Yellow); Urine Crystals Unidentified Few /HPF (None Seen); Urine Culture Reflex Order NOT NEEDED; Urine Glucose NEGATIVE (Negative); Urine Ketones NEGATIVE (Negative); Urine Microscopic Reflex YN ORDER UMIC; Urine Mucus Slight /HPF (None Seen); Urine Nitrite NEGATIVE (Negative); Urine Protein TRACE (Negative); Urine RBC <5 /HPF (None Seen); Urine Urobilinogen Normal (Normal); Urine WBC <5 /HPF (<5); Urine pH 6.5 (5.0-7.0)
--- NOTE | 2024-01-23 17:02 | ER ---
Nurse's Notes [facility] Name: Manish Tena Age: 53 yrs Sex: Female : 1970 Arrival Date: 01/23/2024 Time: 11:44 Bed 7 Private MD: Diagnosis: Acute interstitial pneumonitis;Systemic lupus erythematosus, unspecified Presentation: 01/22 11:53 Chief complaint: Patient states: pain all over and swelling to joints that began jl7 Tuesday, worse today. Coronavirus screen: Client denies travel out of the [place] in the last 14 days. Ebola Screen: Patient denies exposure to infectious person. Patient denies travel to an Ebola-affected area in the 21 days before illness onset. Initial Sepsis Screen: Does the patient meet any 2 criteria? No. Patient's initial sepsis screen is negative. Does the patient have a suspected source of infection? No. Patient's initial sepsis screen is negative. Risk Assessment: Do you want to hurt yourself or someone else? Patient reports no desire to harm self or others. Onset of symptoms was January 20, 2024. 11:53 Method Of Arrival: Wheelchair jl7 11:53 Acuity: ANAHY 3 jl7 Triage Assessment: 12:00 General: Appears in no apparent distress. uncomfortable, Behavior is appropriate for bp age. Pain: Complains of pain in GENERALIZED. EENT: No deficits noted. Neuro: No deficits noted. Cardiovascular: No deficits noted. Respiratory: No deficits noted. GI: No signs and/or symptoms were reported involving the gastrointestinal system. : No signs and/or symptoms were reported regarding the genitourinary system. Derm: No deficits noted. Musculoskeletal: No deficits noted. Historical: - Allergies: 11:54 Latex; jl7 - PMHx: 11:54 Hypertension; Migraines; osteoarthritis; PRE DIABETIC (Migraines); Lupus (PRE DIABETIC);jl7 - Immunization history:: Adult Immunizations up to date. - Infectious Disease History:: Denies. - Social history:: Smoking status: Patient denies any tobacco usage or history of. Screenin:56 Abuse screen: Denies threats or abuse. Denies injuries from another. Nutritional jl7 screening: No deficits noted. Tuberculosis screening: Never had TB. 14:38 [facility] ED Fall Risk Assessment (Adult) History of falling in the last 3 months, bp including since admission No falls in past 3 months (0 pts) Confusion or Disorientation No (0 pts) Intoxicated or Sedated No (0 pts) Impaired Gait No (0 pts) Mobility Assist Device Used No (0 pt) Altered Elimination No (0 pt) Score/Fall Risk Level 0 - 2 = Low Risk. Assessment: 11:55 Reassessment: Dr. Murcia assessing pt in triage. jl7 14:37 Reassessment: Patient appears in no apparent distress at this time. Patient is alert, bp oriented x 3, equal unlabored respirations, skin warm/dry/pink. Vital Signs: 11:53 BP 171 / 87; Pulse 88; Resp 16; Temp 97.8; Pulse Ox 100% on R/A; Weight 86.64 kg; jl7 Height 5 ft. 7 in. ; Pain 10/10; 12:00 BP 143 / 88; Pulse 65; Resp 15; Pulse Ox 100% ; bp 14:38 BP 146 / 88; Pulse 66; Resp 16; Pulse Ox 98% ; bp 16:15 BP 171 / 94; Pulse 63; Resp 16; Pulse Ox 98% ; bp 11:53 Body Mass Index 29.91 (86.64 kg, 170.18 cm) jl7 11:53 Pain Scale: Adult jl7 ED Course: 11:47 Patient arrived in ED. mr 11:52 Jelly Murcia MD is Attending Physician. gb1 11:54 Triage completed. jl7 11:54 Arm band placed on right wrist. jl7 12:30 Initial lab(s) drawn, by ED staff, sent to lab. Inserted saline lock: 20 gauge in right bp antecubital area, using aseptic technique. Blood collected. Flushed with 10 mL NS. 12:32 Chest Single View XRAY In Process Unspecified. EDMS 13:41 Javier Alcaraz, RN is Primary Nurse. bp 14:38 Patient has correct armband on for positive identification. bp 17:38 No provider procedures requiring assistance completed. IV discontinued, intact, bp bleeding controlled, No redness/swelling at site. Pressure dressing applied. Administered Medications: 13:58 Drug: Ondansetron IVP 4 mg IVP once; over 2 minutes Route: IVP; Site: right antecubital;bp 16:03 Follow up: Response: No adverse reaction bp 13:58 Drug: morphine IVP or IV 4 mg IVP once over 4 mins Route: IVP; Infused Over: 4 mins; bp Site: right antecubital; 16:02 Follow up: Response: No adverse reaction bp 16:14 Drug: MethylPrednisoLONE IVP 125 mg IVP once Route: IVP; Site: right forearm; bp 16:14 Follow up: Response: No adverse reaction bp 16:14 Drug: HYDROcodone-acetaminophen PO 5 mg-325 mg 1 tabs PO once Route: PO; bp 16:14 Follow up: Response: No adverse reaction bp Medication: 14:38 VIS not applicable for this client. bp Outcome: 17:01 Discharge ordered by gb1 17:38 Discharged to home via wheelchair, with family, bp 17:38 Condition: stable 17:38 Discharge instructions given to patient, Instructed on discharge instructions, follow up and referral plans. Demonstrated understanding of instructions, follow-up care, 17:39 Patient left the ED. bp Signatures: Dispatcher [employer] EDMS Riri Richard, Quinten Reg mr Charlene Dumont, RN RN jl7 Javier Alcaraz RN RN bp DivinaJelly MD MD gb1 Corrections: (The following items were deleted from the chart) 14:38 12:00 BP 151 / 88; Pulse 65bpm; Resp 15bpm; Pulse Ox 100%; bp bp
--- NOTE | 2024-01-23 17:02 | EDPHYS ---
Physician Documentation [facility] Name: Manish Tena Age: 53 yrs Sex: Female : 1970 Arrival Date: 01/23/2024 Time: 11:44 Bed 7 Private MD: ED Physician Jelly Murcia HPI: 01/22 12:08 This 53 yrs old Black Female presents to ER via Wheelchair with complaints of Lupus gb1 Flare up, Pain All Over. 12:08 53-year-old female with history of lupus presents with pain all over. She states that gb1 she is currently on prednisone and medication for lupus but she has been feeling more discomfort in her extremities and her small joints as well as swollen everywhere. She has been compliant with her medications. Today she felt dizzy and decided to come in for evaluation. She denies any fall consciousness no head strike.. Patient denies any chest pain or shortness of breath. Denies any URI viral symptoms.. Historical: - Allergies: 11:54 Latex; jl7 - PMHx: 11:54 Hypertension; Migraines; osteoarthritis; PRE DIABETIC (Migraines); Lupus (PRE DIABETIC);jl7 - Immunization history:: Adult Immunizations up to date. - Infectious Disease History:: Denies. - Social history:: Smoking status: Patient denies any tobacco usage or history of. Exam: 12:09 Constitutional: This is a well developed, well nourished patient who is awake, alert, gb1 and in no acute distress. Head/Face: Normocephalic, atraumatic. Eyes: Pupils equal round and reactive to light, extra-ocular motions intact. Lids and lashes normal. Conjunctiva and sclera are non-icteric and not injected. Cornea within normal limits. Periorbital areas with no swelling, redness, or edema. ENT: Nares patent. No nasal discharge, no septal abnormalities noted. Tympanic membranes are normal and external auditory canals are clear. Oropharynx with no redness, swelling, or masses, exudates, or evidence of obstruction, uvula midline. Mucous membranes moist. Neck: Trachea midline, no thyromegaly or masses palpated, and no cervical lymphadenopathy. Supple, full range of motion without nuchal rigidity, or vertebral point tenderness. No Meningismus. Chest/axilla: Normal chest wall appearance and motion. Nontender with no deformity. No lesions are appreciated. Cardiovascular: Regular rate and rhythm with a normal S1 and S2. No gallops, murmurs, or rubs. Normal PMI, no JVD. No pulse deficits. Back: No spinal tenderness. No costovertebral tenderness. Full range of motion. Skin: Warm, dry with normal turgor. Normal color with no rashes, no lesions, and no evidence of cellulitis. MS/ Extremity: Pulses equal, no cyanosis. Neurovascular intact. Full, normal range of motion. Vital Signs: 11:53 BP 171 / 87; Pulse 88; Resp 16; Temp 97.8; Pulse Ox 100% on R/A; Weight 86.64 kg; jl7 Height 5 ft. 7 in. ; Pain 10/10; 12:00 BP 143 / 88; Pulse 65; Resp 15; Pulse Ox 100% ; bp 14:38 BP 146 / 88; Pulse 66; Resp 16; Pulse Ox 98% ; bp 16:15 BP 171 / 94; Pulse 63; Resp 16; Pulse Ox 98% ; bp 11:53 Body Mass Index 29.91 (86.64 kg, 170.18 cm) jl7 11:53 Pain Scale: Adult jl7 MDM: 11:53 Medical Screening Exam initiated gb 12:09 Data reviewed: vital signs, nurses notes. gb 17:02 ED course: 53-year-old -Ivorian female with history of lupus, migraines, gb1 hypertension and osteoarthritis here with a lupus flare complicated by a very mild pneumonitis. No focal pneumonia on x-ray patient appears to be satting 100% on room air, no increased work of breathing or retractions she is not tachypneic or tachycardic she feels clinically improved after medication treatment here for pain. Patient is currently on chronic steroids and treatment for lupus. I will recommend she follow-up with her neurologist as previously scheduled and prior to discharge, she is compliant with return precautions set forth prior to leaving the ER today.. 01/22 12:00 Order name: CBC with Diff; Complete Time: 14:59 gb1 01/22 12:00 Order name: CMP; Complete Time: 14:59 gb1 01/22 12:00 Order name: Urinalysis w/ reflexes; Complete Time: 17:00 gb1 01/22 13:20 Order name: SARS RAPID; Complete Time: 14:59 ss 12 13:20 Order name: Flu; Complete Time: 14:59 ss 12 12:01 Order name: Chest Single View XRAY; Complete Time: 13:44 gb1 12 12:00 Order name: IV Saline Lock; Complete Time: 13:58 gb1 12 12:00 Order name: Labs collected and sent; Complete Time: 13:58 gb1 Administered Medications: 13:58 Drug: Ondansetron IVP 4 mg IVP once; over 2 minutes Route: IVP; Site: right antecubital;bp 16:03 Follow up: Response: No adverse reaction bp 13:58 Drug: morphine IVP or IV 4 mg IVP once over 4 mins Route: IVP; Infused Over: 4 mins; bp Site: right antecubital; 16:02 Follow up: Response: No adverse reaction bp 16:14 Drug: MethylPrednisoLONE IVP 125 mg IVP once Route: IVP; Site: right forearm; bp 16:14 Follow up: Response: No adverse reaction bp 16:14 Drug: HYDROcodone-acetaminophen PO 5 mg-325 mg 1 tabs PO once Route: PO; bp 16:14 Follow up: Response: No adverse reaction bp Disposition Summary: 01/23/24 17:01 Discharge Ordered Notes: Location: Home gb1 Problem: new gb1 Symptoms: have improved gb1 Condition: Stable gb1 Diagnosis - Acute interstitial pneumonitis gb1 - Systemic lupus erythematosus, unspecified gb1 Followup: gb1 - With: Private Physician - When: - Reason: Recheck today's complaints Discharge Instructions: - Discharge Summary Sheet gb1 - Pneumonitis gb1 Forms: - Medication Reconciliation Form gb1 - Antibiotic Education gb1 - Prescription Opioid Use gb1 - Patient Portal Instructions gb1 - Leadership Thank You Letter gb1 Signatures: Dispatcher [employer] Charlene Jacome RN RN jl7 Javier Alcaraz RN RN Jelly Hobbs MD MD gb1 Corrections: (The following items were deleted from the chart) 12:01 12:01 CBC+H.LAB.BRZ ordered. EDMS EDMS 12: 12:01 COMPREHENSIVE METABOLIC PANEL+C.LAB.BRZ ordered. EDMS EDMS 12: 12:01 Urinalysis+U.LAB.BRZ ordered. EDMS EDMS
[2024-01-23 22:09] VITALS: TEMP 97.8
[2024-01-23 22:41] VITALS: O2SAT 98
[2024-01-23 22:43] VITALS: BP 171/94
== END 2024-01-23 17:39 | disposition home or self-care (01) ==
LOC: ER 11:44
DX: J84.114 Acute interstitial pneumonitis (principal); M32.9 Systemic lupus erythematosus, unspecified; I10 Essential (primary) hypertension; R73.03 Prediabetes; Z11.52 Encounter for screening for COVID-19
CPT/HCPCS: 85025; 81001; 36415; 80053; 87804 ×2; 71045; 99284; 87811; J2919; J2405